=== PATIENT | female | born 1930 | race Caucasian/White ===

== ENCOUNTER 2017-04-04 21:20 | Inpatient (IN) | payer OTHER, BC ==
--- NOTE | 2017-04-04 22:33 | PDOC ---
History of Present Illness <Jacquelyn Sánchez - Last Filed: 04/05/17 02:20> - General History Source: Patient Exam Limitations: No Limitations - History of Present Illness Travel History: No Initial Comments: 04/04/17 22:31 86yo Female patient presents to ED from [facility] via EMS. Patient states she is there for rehab, and had been admit to [facility] from [facility] where she was admitted x 1 week for COPD, CHF, and Anemia. Patient was to follow up with her GI doctor regarding anemia, but today patient went to bathroom and had BM that was all blood. She reports her most recent Hgb level 6.9. Currently taking Coumadin 5 mg daily for artificial heart valve replacement but has not taken it in 2 days per family. Associated abd pain/ discomfort. Denies epistaxis, hematuria, n/v, fever, diff breathing, CP, or any other complaints at this time. <Benjie Garibay - Last Filed: 04/05/17 03:04> - General Chief Complaint: Rectal Bleed Stated Complaint: Rectal Bleed Time Seen by Provider: 04/04/17 21:41 Past History <Jacquelyn Sánchez - Last Filed: 04/05/17 02:20> - Travel Traveled outside of the country in the last 30 days: No Close contact w/someone who was outside of country & ill: No - Past Medical History Cardiac Disorders: Yes CVA: Yes - Surgical History Cardiac Surgery: Yes (aorta valve replacement, pacemaker) Orthopedic Surgery: Yes (Knee and shoulder) - Immunization History Immunization Up to Date: Yes - Psycho/Social/Smoking Cessation Hx Anxiety: No Suicidal Ideation: No Smoking Status: No Smoking History: Never smoked Have you smoked in the past 12 months: No Number of Cigarettes Smoked Daily: 0 Information on smoking cessation initiated: No Hx Alcohol Use: No Drug/Substance Use Hx: No Substance Use Type: None Hx Substance Use Treatment: No <Benjie Garibay - Last Filed: 04/05/17 03:04> - Past Medical History Allergies/Adverse Reactions: Allergies Allergy/AdvReac Type Severity Reaction Status Date / Time No Known Allergies Allergy Verified 04/04/17 22:03 Home Medications: Ambulatory Orders Unobtainable [Unobtainable] 04/04/17 Abd/GI Specific PMHX - Complaint Specific PMHX Colitis: No Diverticulitis: No Gall Bladder Disease: No GERD: No Hepatitis: No Irritable Bowel Synd (IBS): No <Benjie Garibay - Last Filed: 04/05/17 03:04> Review of Systems - Review of Systems Able to Perform ROS?: Yes Is the patient limited Japanese proficient: No Constitutional: No: Chills, Fever Cardiac (ROS): Yes: Lightheadedness. No: Chest Pain, Palpitations, Chest Tightness ABD/GI: Yes: Diarrhea, Rectal Bleeding, Abdominal cramping. No: Blood Streaked Bowels, Constipated, Nausea, Poor Appetite, Poor Fluid Intake, Vomiting, Tarry Stools : No: Burning, Dysuria, Hematuria Musculoskeletal: No: Back Pain Integumentary: No: Bruising, Dryness, Erythema Neurological: Yes: Dizziness. No: Headache, Seizure, Unsteady Gait, Ataxia All Other Systems: Reviewed and Negative <Benjie Garibay - Last Filed: 04/05/17 03:04> *Physical Exam - Vital Signs Last Vital Signs Temp Pulse Resp BP Pulse Ox 96.8 F L 67 19 100/91 98 04/04/17 22:00 04/04/17 22:00 04/04/17 22:00 04/04/17 22:00 04/04/17 22:00 <Jacquelyn Sánchez - Last Filed: 04/05/17 02:20> - Vital Signs Last Vital Signs Temp Pulse Resp BP Pulse Ox 96.8 F L 67 19 100/91 97 04/04/17 22:00 04/04/17 22:00 04/04/17 22:00 04/04/17 22:00 04/04/17 22:00 - Physical Exam General Appearance: Yes: Nourished, Appropriately Dressed. No: Apparent Distress, Mild Distress, Moderate Distress, Severe Distress Neck: positive: Trachea midline, Supple. negative: Normal Thyroid, Rigid, Stridor, Lymphadenopathy (R), Lymphadenopathy (L) Respiratory/Chest: positive: Lungs Clear, Normal Breath Sounds. negative: Chest Tender, Respiratory Distress, Accessory Muscle Use, Labored Respiration, Rapid RR Cardiovascular: positive: Regular Rhythm, Regular Rate Gastrointestinal/Abdominal: positive: Soft, Increased Bowel Sounds, Distended. negative: Normal Bowel Sounds, Tender, Flat, Guarding, Rebound, Tenderness Musculoskeletal: positive: Normal Inspection. negative: CVA Tenderness Extremity: positive: Normal Capillary Refill, Normal Inspection, Normal Range of Motion. negative: Pedal Edema, Swelling, Calf Tenderness, Erythema, Inflammation Integumentary: positive: Normal Color, Dry, Warm. 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 NML intact, Fully Oriented, Alert, Normal Mood/ Affect, Normal Response, Motor Strength 5/5 <Benjie Garibay D - Last Filed: 04/05/17 03:04> ED Treatment Course - LABORATORY CBC & Chemistry Diagram: 04/04/17 23:43 04/04/17 23:43 - ADDITIONAL ORDERS Additional order review: Laboratory Results 04/04/17 04/04/17 04/04/17 23:43 23:43 23:43 INR 3.80 H D PTT (Actin FS) 44.8 H Sodium 144 Potassium 4.3 Chloride 107 Carbon Dioxide 28 Anion Gap 9 BUN 25 H D Creatinine 0.8 Creat Clearance w eGFR > 60 Random Glucose 117 H Calcium 7.6 L Total Bilirubin 0.1 L D AST 12 L D ALT 23 Alkaline Phosphatase 65 D Creatine Kinase 62 Troponin I 0.02 Total Protein 5.0 L D Albumin 2.7 L D Blood Type A POSITIVE Antibody Screen Negative Crossmatch See Detail 04/04/17 23:43 RBC 2.15 L D MCV 89.4 MCHC 29.5 L RDW 23.2 H D MPV 8.0 Neutrophils % 84.8 H Lymphocytes % 6.7 L D Monocytes % 7.7 Eosinophils % 0.4 Basophils % 0.4 - Medications Given in the ED: ED Medications Discontinued Medications Generic Name Dose Route Start Last Admin Trade Name Freq PRN Reason Stop Dose Admin Pantoprazole Sodium 40 mg/ 100 mls @ 200 mls/hr 04/05/17 00:41 04/05/17 01:40 Sodium Chloride IVPB 04/05/17 01:10 200 mls/hr ONCE ONE Administration <Jacquelyn Sánchez - Last Filed: 04/05/17 02:20> - LABORATORY CBC & Chemistry Diagram: 04/04/17 23:43 04/04/17 23:43 - RADIOLOGY Radiology Studies Ordered: Category Date Time Status ABDOMEN & PELVIS CT W/O CONTR [CT] Stat CT Scan 04/04/17 22:27 Ordered <Benjie Garibay - Last Filed: 04/05/17 03:04> Medical Decision Making - Medical Decision Making 04/05/17 02:[address] Surendra Noyola (via answering service) at 2:09 Awaiting call back 04/05/17 02:20 Patient's case discussed with Dr. Noyola at 2:20 <Jacquelyn Sánchez - Last Filed: 04/05/17 02:20> *DC/Admit/Observation/Transfer <Jacquelyn Sánchez - Last Filed: 04/05/17 02:20> - Discharge Dispostion Admit: Yes <Benjie Garibay - Last Filed: 04/05/17 03:04> Diagnosis at time of Disposition: GI (gastrointestinal bleed) Qualifiers: GI bleed type/associated pathology: unspecified gastrointestinal hemorrhage type Qualified Code(s): K92.2 - Gastrointestinal hemorrhage, unspecified Anemia Qualifiers: Anemia type: unspecified type Qualified Code(s): D64.9 - Anemia, unspecified - Discharge Dispostion Condition at time of disposition: Fair
[2017-04-04 23:51] LABS: BASOPHIL 0.4 % (0-2.0); EOSINOPHIL 0.4 % (0-4.5); MCH 26.4 pg (25.7-33.7); MCHC 29.5 g/dl (32.0-36.0); MEAN CELL VOLUME 89.4 fl (80-96); NEUTROPHILS 84.8 % (42.8-82.8); PLATELET COUNT 260 K/MM3 (134-434); RDW 23.2 % (11.6-15.6); WHITE BLOOD COUNT 11.9 K/mm3 (4.0-10.0)
[2017-04-05 00:31] LABS: INR 3.8 (0.82-1.09); PROTHROMBIN TIME (PATIENT) 42.9 SEC (9.98-11.88)
[2017-04-05 00:34] LABS: ACTIVATED PTT 44.8 SECONDS (26.9-34.4)
[2017-04-05] MEDS ORDERED: PANTOPRAZOLE SODIUM 40 MG in SODIUM CHLORIDE 100 ML IVPB ONE (00:41)
--- NOTE | 2017-04-05 00:42 | PDOC ---
*Physical Exam - Vital Signs Last Vital Signs Temp Pulse Resp BP Pulse Ox 96.8 F L 67 19 100/91 98 04/04/17 22:00 04/04/17 22:00 04/04/17 22:00 04/04/17 22:00 04/04/17 22:00 ED Treatment Course - LABORATORY CBC & Chemistry Diagram: 04/05/17 17:45 04/04/17 23:43 - ADDITIONAL ORDERS Additional order review: Laboratory Results 04/04/17 04/04/17 23:43 23:43 INR 3.80 H D PTT (Actin FS) 44.8 H Crossmatch See Detail 04/04/17 23:43 RBC 2.15 L D MCV 89.4 MCHC 29.5 L RDW 23.2 H D MPV 8.0 Neutrophils % 84.8 H Lymphocytes % 6.7 L D Monocytes % 7.7 Eosinophils % 0.4 Basophils % 0.4 Medical Decision Making - Medical Decision Making 04/05/17 00:42 agree with care from BARBARA Garibay *DC/Admit/Observation/Transfer Diagnosis at time of Disposition: GI (gastrointestinal bleed), Anemia - Discharge Dispostion Condition at time of disposition: Fair
[2017-04-05 00:47] LABS: ALBUMIN 2.7 g/dl (3.4-5.0); ANION GAP 9 (8-16); BILIRUBIN,TOTAL 0.1 mg/dL (0.2-1.0); CALCIUM 7.6 mg/dL (8.5-10.1); CO2 28 mmol/L (21-32); COCKROFT - GAULT 55.6835; CREATININE 0.8 mg/dL (0.55-1.02); GLUCOSE,RANDOM 117 mg/dL (74-106); SGOT/AST 12 U/L (15-37); SGPT/ALT 23 U/L (12-78)
[2017-04-05 00:49] LABS: ALK PHOS 65 U/L (45-117); TROPONIN I 0.02 ng/ml (0.00-0.05)
[2017-04-05] MEDS ORDERED: PANTOPRAZOLE SODIUM 100 ML IVPB ONE (00:51)
[2017-04-05 02:41] LABS: ANISOCYTOSIS 3+; MICROCYTOSIS 3+
[2017-04-05 05:30] VITALS: BMI 30.7
--- NOTE | 2017-04-05 05:48 | CONSULT ---
Consult Consult Specialty:: Pulm/CCM - History of Present Illness Chief Complaint: Abd pain with BRBPR History of Present Illness: 86yow with PMHx COPD, CHF, A-fib with pacemaker, mitral valve replacement on coumadin with recent admission to [facility] for CHF exacerbation and anemia and discharged to [facility] for rehab presents to ED via EMS with c/o abd pain and BRBPR. Patient reports planned w/u of anemia with her GI doctor, but today had episode of hematechezia. She reports her most recent Hgb level 6.9. Coumadin 5 mg daily for artificial heart valve replacement was held for 2 days prior as per family. In the ED VSS with no repeat episode of bleed. Labs notable for hgb 5.7, INR 3.8 , trop 0.2. 1U PRBC and Protonix 40mg given in ED. She was transferred to ICU for management In ICU VSS, A+O x3, smear of bloody stool at rectum. Cont 2L NC O2. 2 20G husam IV placed, started on protonix drip. 2nd U of PRBC started. 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 No: Diabetes Mellitus - Past Surgical History Past Surgical History: Yes: Permanent Pacemaker, Valve Replacement - Alcohol/Substance Use Hx Alcohol Use: No - Smoking History Smoking history: Never smoked Have you smoked in the past 12 months: No Aproximately how many cigarettes per day: 0 - Social History Usual Living Arrangement: With Spouse History of Recent Travel: No Home Medications - Allergies Allergies/Adverse Reactions: Allergies Allergy/AdvReac Type Severity Reaction Status Date / Time No Known Allergies Allergy Verified 04/04/17 22:03 - Home Medications Home Medications: Ambulatory Orders Amiodarone HCl 200 mg PO DAILY 04/05/17 Aspirin [ASA -] 81 mg PO DAILY 04/05/17 Atorvastatin Ca [Lipitor] 40 mg PO HS 04/05/17 Benzonatate 200 mg PO DAILY 04/05/17 Bumetanide [Bumex -] 1 mg PO DAILY 04/05/17 Docusate Sodium [Colace -] 100 mg PO DAILY 04/05/17 Fluticasone Furoate [Arnuity Ellipta] 200 mcg IH DAILY 04/05/17 Levofloxacin 250 mg Ivpb [Levaquin 250 mg Premixed Ivpb -] 250 mg PO DAILY 04/05 Levothyroxine [Synthroid -] 50 mcg PO DAILY 04/05/17 Pantoprazole Sodium [Protonix] 40 mg PO DAILY 04/05/17 Polyethylene Glycol 3350 [Gavilax] 1 pack PO DAILY 04/05/17 Potassium Citrate [Urocit-K (Nf)] 540 mg NR BID 04/05/17 Sennosides [Senna] 2 tab PO DAILY 04/05/17 Tiotropium [place] [Spiriva] 1 inh PO DAILY 04/05/17 Warfarin Sodium [Coumadin] 5 mg PO DAILY 04/05/17 Family Disease History - Family Disease History Family History: Unremarkable Review of Systems - Review of Systems Constitutional: reports: No Symptoms Eyes: reports: No Symptoms HENT: reports: No Symptoms Neck: reports: No Symptoms Cardiovascular: reports: No Symptoms Respiratory: reports: No Symptoms Gastrointestinal: reports: Abdominal Pain, Melena Genitourinary: reports: No Symptoms Breasts: reports: No Symptoms Reported Neurological: reports: Other (lightheadedness) Endocrine: reports: No Symptoms Hematology/Lymphatic: reports: Easily Bruised Psychiatric: reports: No Symptoms Physical Exam Vital Signs: Vital Signs Temperature 98.7 F 04/05/17 05:17 Pulse Rate 71 04/05/17 05:17 Respiratory Rate 18 04/05/17 05:17 Blood Pressure 137/67 04/05/17 05:17 O2 Sat by Pulse Oximetry (%) 98 04/04/17 22:00 Constitutional: Yes: Well Nourished, No Distress, Calm Eyes: Yes: PERRL HENT: Yes: Normocephalic Neck: Yes: Trachea Midline Cardiovascular: Yes: Other (Paced rhythm) Respiratory: Yes: CTA Bilaterally, On Nasal O2 Gastrointestinal: Yes: Soft (ND, NT; + BS) Renal/: Yes: Incontinence Musculoskeletal: Yes: Joint Stiffness (knee surgeries) Extremities: Yes: Other (WWP) Edema: No Peripheral Pulses WNL: Yes Integumentary: Yes: WNL Neurological: Yes: Alert, Oriented ...Motor Strength: WNL Psychiatric: Yes: Alert, Oriented Labs: CBCD WBC 11.9 K/mm3 (4.0-10.0) H 04/04/17 23:43 RBC 2.15 M/mm3 (3.60-5.2) L D 04/04/17 23:43 Hgb 5.7 GM/dL (10.7-15.3) L* D 04/04/17 23:43 Hct 19.3 % (32.4-45.2) L D 04/04/17 23:43 MCV 89.4 fl (80-96) 04/04/17 23:43 MCHC 29.5 g/dl (32.0-36.0) L 04/04/17 23:43 RDW 23.2 % (11.6-15.6) H D 04/04/17 23:43 Plt Count 260 K/MM3 (134-434) D 04/04/17 23:43 MPV 8.0 fl (7.5-11.1) 04/04/17 23:43 CMP Sodium 144 mmol/L (136-145) 04/04/17 23:43 Potassium 4.3 mmol/L (3.5-5.1) 04/04/17 23:43 Chloride 107 mmol/L (98-107) 04/04/17 23:43 Carbon Dioxide 28 mmol/L (21-32) 04/04/17 23:43 Anion Gap 9 (8-16) 04/04/17 23:43 BUN 25 mg/dL (7-18) H D 04/04/17 23:43 Creatinine 0.8 mg/dL (0.55-1.02) 04/04/17 23:43 Creat Clearance w eGFR > 60 (>60) 04/04/17 23:43 Calcium 7.6 mg/dL (8.5-10.1) L 04/04/17 23:43 Total Bilirubin 0.1 mg/dL (0.2-1.0) L D 04/04/17 23:43 AST 12 U/L (15-37) L D 04/04/17 23:43 ALT 23 U/L (12-78) 04/04/17 23:43 Alkaline Phosphatase 65 U/L (45-117) D 04/04/17 23:43 Total Protein 5.0 g/dl (6.4-8.2) L D 04/04/17 23:43 Albumin 2.7 g/dl (3.4-5.0) L D 04/04/17 23:43 Ambulatory Orders Amiodarone HCl 200 mg PO DAILY 04/05/17 Aspirin [ASA -] 81 mg PO DAILY 04/05/17 Atorvastatin Ca [Lipitor] 40 mg PO HS 04/05/17 Benzonatate 200 mg PO DAILY 04/05/17 Bumetanide [Bumex -] 1 mg PO DAILY 04/05/17 Docusate Sodium [Colace -] 100 mg PO DAILY 04/05/17 Fluticasone Furoate [Arnuity Ellipta] 200 mcg IH DAILY 04/05/17 Levofloxacin 250 mg Ivpb [Levaquin 250 mg Premixed Ivpb -] 250 mg PO DAILY 04/05 Levothyroxine [Synthroid -] 50 mcg PO DAILY 04/05/17 Pantoprazole Sodium [Protonix] 40 mg PO DAILY 04/05/17 Polyethylene Glycol 3350 [Gavilax] 1 pack PO DAILY 04/05/17 Potassium Citrate [Urocit-K (Nf)] 540 mg NR BID 04/05/17 Sennosides [Senna] 2 tab PO DAILY 04/05/17 Tiotropium [place] [Spiriva] 1 inh PO DAILY 04/05/17 Warfarin Sodium [Coumadin] 5 mg PO DAILY 04/05/17 Active Medications Generic Name Dose Route Start Last Admin Trade Name Freq PRN Reason Stop Dose Admin Pantoprazole Sodium 80 mg/ 100 mls @ 10 mls/hr 04/05/17 06:00 Sodium Chloride IVPB Q10H GISELA 8 MG/HR Imaging - Results Cat Scan: Pending (CT A/P results pending) Problem List - Problems (1) Anemia Code(s): D64.9 - ANEMIA, UNSPECIFIED Qualifiers: Anemia type: unspecified type Qualified Code(s): D64.9 - Anemia, unspecified (2) GI (gastrointestinal bleed) Code(s): K92.2 - GASTROINTESTINAL HEMORRHAGE, UNSPECIFIED Qualifiers: GI bleed type/associated pathology: unspecified gastrointestinal hemorrhage type Qualified Code(s): K92.2 - Gastrointestinal hemorrhage, unspecified (3) Anticoagulation adequate with anticoagulant therapy Code(s): Z79.01 - JAIL (CURRENT) USE OF ANTICOAGULANTS Assessment/Plan 86yow with PMHx COPD, CHF, A-fib with pacemaker, mitral valve replacement on coumadin with recent admission to [facility] for CHF exacerbation and anemia and discharged to [facility] for rehab presents to ED via EMS with c/o epigastric abd pain and BRBPR. Transferred to ICU with severe anemia 2/2 GIB. Presently HD stable Plan: -GI consult for possible EGD -Maintain NPO -Maintain large bore IV access -Protonix drip at 8mg/hr -Monitor CBC and coags -PRBC transfusion for Hgb<7 -Gentle transfusions re CHF -NC O2 as needed for O2 sat >95% -Consider diuresis with transfusions -Cardiology consult
[2017-04-05] MEDS: PANTOPRAZOLE SODIUM 80 MG in SODIUM CHLORIDE 100 ML IVPB SCH ×2 (06:20→16:16)
[2017-04-05] MEDS ORDERED: ACETAMINOPHEN 325 MG TABLET (FP) PO PRN (08:08)
--- NOTE | 2017-04-05 08:15 | PN ---
Physical Exam: SUBJECTIVE: Patient seen and examined at bedside this AM in ICU with sons present. AAO and at mental status baseline. States she feels much better & more like herself. Receiving 2nd unit PRBC during our conversation & without any issues during transfusion. OBJECTIVE: Vital Signs Period Temp Pulse Resp BP Sys/Chan Pulse Ox Last 24 Hr 98.7 F 71 18 137/67 98 GENERAL: The patient is awake, alert, and fully oriented, in no acute distress. HEENT: Atyraumatic, EOMI, PERRLA, Mild conjunctival pallor noted, no lymphadenopathy LUNGS: Breath sounds equal, clear to auscultation bilaterally, no wheezes, no crackles, no accessory muscle use. HEART: Regular rate and rhythm, S1, S2 with 4/6 systolic murmur at right sternal border ABDOMEN: Soft, nontender, nondistended, normoactive bowel sounds, no guarding, no rebound EXTREMITIES: 2+ pulses, warm, well-perfused, trace bilateral LE edema NEUROLOGICAL: Cranial nerves II through XII grossly intact. Normal speech, gait not observed. PSYCH: Normal mood, normal affect. SKIN: Warm, dry, normal turgor, no rashes or lesions noted. Active Medications Generic Name Dose Route Start Last Admin Trade Name Freq PRN Reason Stop Dose Admin Acetaminophen 650 mg 04/05/17 08:08 Tylenol - PO Q6H PRN FEVER OR PAIN Chlorhexidine Gluconate 1 applic 04/05/17 22:00 Hibiclens For Decolonization - TP HS GISELA Pantoprazole Sodium 80 mg/ 100 mls @ 10 mls/hr 04/05/17 06:00 04/05/17 06:20 Sodium Chloride IVPB 10 mls/hr Q10H GISELA Administration 8 MG/HR Ceftriaxone Sodium 50 mls @ 100 mls/hr 04/05/17 10:00 04/05/17 12:06 Rocephin 1gm Ivpb (Pre-Docked) IVPB 100 mls/hr DAILY GISELA Administration Mupirocin 1 applic 04/05/17 10:00 04/05/17 12:06 Bactroban Ointment (For Decolonization) - NS 04/10/17 09:59 1 units BID GISELA Administration ASSESSMENT/PLAN: Patient is a 86 year old female with PMH of CHF, Paroxysmal A-Fib with pacemaker , 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 Patient recently resumed Coumadin #Acute GI bleed, Hematochezia -2 units PRBC given with improvement to 7.6 this afternoon -will trend CBC later this afternoon & in AM -NPO for now -PPI drip -transfuse as needed to keep Hgb >7 -GI consult appreciated (patient & family are unsure if they want endoscopy/ colonoscopy, awaiting ECHO results & further trending of hemoglobin before they make decision) -may need transfer to tertiary care center if intervention is needed #Acute UTI -Started on ceftriaxone -awaiting urine culture #A-Fib/Aortic valve replacement Hx in setting of Coumadin use -Coumadin on hold (supratherapeutic INR) -awaiting ECHO results -Cardiology consulted -holding following home meds: -follow INR #HTN/HLD/CAD Hx -continue home meds: Lipitor 40mg HS, Amiodarone 200mg QD #Right renal Hyperdensity noted on CT -will need f/u CT w/ contrast to rule out mass -can be monitored as outpatient Prophylaxis -SCD's -PPI drip -IVF as needed -monitor electrolytes -NPO Visit type - Emergency Visit Emergency Visit: Yes ED Registration Date: 04/05/17 Care time: The patient presented to the Emergency Department on the above date and was hospitalized for further evaluation of their emergent condition. - New Patient This patient is new to me today: Yes Date on this admission: 04/05/17 - Critical Care Critical Care patient: Yes Total Critical Care Time (in minutes): 50 Critical Care Statement: The care of this patient involved high complexity decision making to prevent further life threatening deterioration of the patient 's condition and/or to evalute & treat vital organ system(s) failure or risk of failure.
[2017-04-05 08:47] LABS: URINE APPEARANCE CLEAR; URINE BILIRUBIN NEGATIVE (NEGATIVE); URINE BLOOD NEGATIVE (NEGATIVE); URINE COLOR YELLOW; URINE GLUCOSE (UA) NEGATIVE (NEGATIVE); URINE KETONE NEGATIVE (NEGATIVE); URINE NITRITE NEGATIVE (NEGATIVE); URINE PROTEIN NEGATIVE (NEGATIVE); URINE UROBILINOGEN NEGATIVE E.U./dl (0.2-1.0)
[2017-04-05 08:53] LABS: URINE LEUK ESTERASE 2+ (NEGATIVE)
[2017-04-05 09:07] LABS: URINE HYALINE CAST 4 /lpf; URINE MUCUS RARE; URINE RBC 2 /hpf (0-3); URINE WBC 55 /hpf (3-5)
--- NOTE | 2017-04-05 10:22 | HP ---
Admitting History and Physical - Primary Care Physician PCP: Rl Wagner - Admission Chief Complaint: anemia.GI bleed History of Present Illness: ER HISTORY History of Present Illness Travel History: No Initial Comments: 04/04/17 22:31 86yo Female patient presents to ED from [facility] via EMS. Patient states she is there for rehab, and had been admit to [facility] from [facility] where she was admitted x 1 week for COPD, CHF, and Anemia. Patient was to follow up with her GI doctor regarding anemia, but today patient went to bathroom and had BM that was all blood. She reports her most recent Hgb level 6.9. Currently taking Coumadin 5 mg daily for artificial heart valve replacement but has not taken it in 2 days per family. Associated abd pain/ discomfort. Denies epistaxis, hematuria, n/v, fever, diff breathing, CP, or any other complaints at this time. Pt examined by me in the ICU-- Pt admitted in ICU for GI bleeding. She was in [facility] recently for bronchitis, severe orthopnea and PND- CHF decompensation. 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 She was dc on 03/26 to [facility]. She was dc on PO Levaquin and Coumadin. Admission Hb in [place] - 7.9. In [place] she saw dark stools for the last two days and yesterday noted red blood in stool. Hb on 04/04-- 6.9 in [place]. She felt lightheaded , upper abd pain , decreased SOB, feels tired. No active bleeding here so far. received 2 units PRBC History Source: Patient Limitations to Obtaining History: No Limitations - Past Medical History DELIVERY ARCHITECT: Yes: Other (h/o subarachnoid hemorrhage) Cardiovascular: Yes: AFIB, CHF, Hyperlipdemia, Other (bioprosthetic valve) Pulmonary: Yes: Other (none) Gastrointestinal: Yes: Other (none) Hepatobiliary: Yes: Cirrhosis, Cholelithiasis, Cholecystitis, Choledocholithiasis, Hepatitis A, Hepatitis B, Hepatitis C, Other Renal/: Yes: Renal Calculi ...: No Heme/Onc: Yes: Other (Kidney tumor). No: Anemia, B12 Deficiency, Bleeding Disorder, Cancer, Current Chemotherapy, Current Radiation Therapy, Hemochromatosis, Hypercoaguable State, Myeloproliferative Synd, Sickle Cell Disease, Sickle Cell Trait, Thrombocytopenia Musculoskeletal: Yes: Other (back pain) Endocrine: Yes: Hypothyroidism. No: Diabetes Mellitus - Past Surgical History Past Surgical History: Yes: Permanent Pacemaker, Valve Replacement - Advance Directives Advance Directives: Yes: Health Care Proxy - Smoking History Smoking history: Never smoked Have you smoked in the past 12 months: No Aproximately how many cigarettes per day: 0 - Alcohol/Substance Use Hx Alcohol Use: No - Social History History of Recent Travel: No Home Medications - Allergies Allergies/Adverse Reactions: Allergies Allergy/AdvReac Type Severity Reaction Status Date / Time No Known Allergies Allergy Verified 04/04/17 22:03 - Home Medications Home Medications: Ambulatory Orders Amiodarone HCl 200 mg PO DAILY 04/05/17 Aspirin [ASA -] 81 mg PO DAILY 04/05/17 Atorvastatin Ca [Lipitor] 40 mg PO HS 04/05/17 Benzonatate 200 mg PO DAILY 04/05/17 Bumetanide [Bumex -] 1 mg PO DAILY 04/05/17 Docusate Sodium [Colace -] 100 mg PO DAILY 04/05/17 Fluticasone Furoate [Arnuity Ellipta] 200 mcg IH DAILY 04/05/17 Levofloxacin 250 mg Ivpb [Levaquin 250 mg Premixed Ivpb -] 250 mg PO DAILY 04/05 Levothyroxine [Synthroid -] 50 mcg PO DAILY 04/05/17 Pantoprazole Sodium [Protonix] 40 mg PO DAILY 04/05/17 Polyethylene Glycol 3350 [Gavilax] 1 pack PO DAILY 04/05/17 Potassium Citrate [Urocit-K (Nf)] 540 mg NR BID 04/05/17 Sennosides [Senna] 2 tab PO DAILY 04/05/17 Tiotropium [place] [Spiriva] 1 inh PO DAILY 04/05/17 Warfarin Sodium [Coumadin] 5 mg PO DAILY 04/05/17 Review of Systems - Review of Systems Constitutional: reports: Weakness. denies: Chills, Fever Cardiovascular: denies: Chest Pain, Palpitations, Shortness of Breath Respiratory: denies: Cough Gastrointestinal: reports: Abdominal Pain. denies: Constipation, Diarrhea, Nausea, Vomiting Physical Examination Vital Signs: Vital Signs Temperature 98.8 F 04/05/17 10:00 Pulse Rate 74 04/05/17 10:00 Respiratory Rate 17 04/05/17 10:00 Blood Pressure 102/45 04/05/17 10:00 O2 Sat by Pulse Oximetry (%) 98 04/05/17 05:41 Constitutional: Yes: No Distress, Calm Cardiovascular: Yes: Regular Rate and Rhythm, Murmur Respiratory: Yes: Diminished. No: Rales, Rhonchi Gastrointestinal: Yes: Normal Bowel Sounds, Soft, Abdomen, Obese. No: Distention, Tenderness Edema: No Psychiatric: Yes: Alert, Oriented Labs: Laboratory Results - last 24 hr 04/04/17 04/04/17 04/04/17 23:43 23:43 23:43 WBC RBC Hgb Hct MCV MCHC RDW Plt Count MPV Neutrophils % Lymphocytes % Monocytes % Eosinophils % Basophils % Anisocytosis Microcytosis INR 3.80 H D PTT (Actin FS) 44.8 H Sodium 144 Potassium 4.3 Chloride 107 Carbon Dioxide 28 Anion Gap 9 BUN 25 H D Creatinine 0.8 Creat Clearance w eGFR > 60 Random Glucose 117 H Calcium 7.6 L Total Bilirubin 0.1 L D AST 12 L D ALT 23 Alkaline Phosphatase 65 D Creatine Kinase 62 Troponin I 0.02 Total Protein 5.0 L D Albumin 2.7 L D Urine Color Urine Appearance Urine pH Urine Protein Urine Glucose (UA) Urine Ketones Urine Blood Urine Nitrite Urine Bilirubin Urine Urobilinogen Ur Leukocyte Esterase Urine RBC Urine WBC Ur Epithelial Cells Hyaline Casts Urine Mucus Blood Type A POSITIVE Antibody Screen Negative Crossmatch See Detail 04/04/17 04/05/17 23:43 06:00 WBC 11.9 H RBC 2.15 L D Hgb 5.7 L* D Hct 19.3 L D MCV 89.4 MCHC 29.5 L RDW 23.2 H D Plt Count 260 D MPV 8.0 Neutrophils % 84.8 H Lymphocytes % 6.7 L D Monocytes % 7.7 Eosinophils % 0.4 Basophils % 0.4 Anisocytosis 3+ Microcytosis 3+ INR PTT (Actin FS) Sodium Potassium Chloride Carbon Dioxide Anion Gap BUN Creatinine Creat Clearance w eGFR Random Glucose Calcium Total Bilirubin AST ALT Alkaline Phosphatase Creatine Kinase Troponin I Total Protein Albumin Urine Color Yellow Urine Appearance Clear Urine pH 5.0 D Urine Protein Negative Urine Glucose (UA) Negative Urine Ketones Negative Urine Blood Negative Urine Nitrite Negative Urine Bilirubin Negative Urine Urobilinogen Negative Ur Leukocyte Esterase 2+ H Urine RBC 2 Urine WBC 55 Ur Epithelial Cells Rare Hyaline Casts 4 Urine Mucus Rare Blood Type Antibody Screen Crossmatch Imaging - Results Cat Scan: Report Reviewed (left lobe consolidation- rt renal mass?) EKG: Image Reviewed (atrial pacing) Problem List - Problems (1) Anemia Code(s): D64.9 - ANEMIA, UNSPECIFIED Qualifiers: Anemia type: unspecified type Qualified Code(s): D64.9 - Anemia, unspecified (2) GI (gastrointestinal bleed) Code(s): K92.2 - GASTROINTESTINAL HEMORRHAGE, UNSPECIFIED Qualifiers: GI bleed type/associated pathology: unspecified gastrointestinal hemorrhage type Qualified Code(s): K92.2 - Gastrointestinal hemorrhage, unspecified (3) Thrombosis of prosthetic heart valve Code(s): T82.867A - THROMBOSIS DUE TO CARDIAC PROSTH DEV/GRFT, INITIAL ENCOUNTER (4) COPD (chronic obstructive pulmonary disease) Code(s): J44.9 - CHRONIC OBSTRUCTIVE PULMONARY DISEASE, UNSPECIFIED Assessment/Plan PLAN s/p 2 units PRBC NPO Coumadin on hold GI and Cardiology eval not in acute CHF decompensation repeat CBC may need to do contrast enhanced CT abd- for renal mass SCD for DVT prophylaxis Pt is on Protonix iv for GI bleed No current actire bleeding now ICU monitoring spoke with nurse and resident Time spent 30 min
[2017-04-05 11:39] LABS: MCH 28.4 pg (25.7-33.7); MCHC 32.6 g/dl (32.0-36.0); MEAN CELL VOLUME 87.3 fl (80-96); MEAN PLT VOLUME 6.9 fl (7.5-11.1); PLATELET COUNT 286 K/MM3 (134-434); RDW 17.6 % (11.6-15.6); WHITE BLOOD COUNT 10.3 K/mm3 (4.0-10.0)
[2017-04-05] MEDS: CEFTRIAXONE 50 ML IVPB SCH (12:06)
[2017-04-05] MEDS: MUPIROCIN 2% TOPICAL OINTMENT FOR DECOLONIZATION NS SCH ×2 (12:06→21:46)
--- NOTE | 2017-04-05 12:44 | CON.CARD ---
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 Case d/w Dr. Bala Reeves at [facility], transvalvular gradient at [facility] higher than current echo finding. - History Source History Provided By: Patient Limitations to Obtaining History: No Limitations - Past Medical History DIRECTOR OF FINANCE: Yes: Other (h/o subarachnoid hemorrhage) Cardio/Vascular: Yes: AFIB, CHF, Hyperlipdemia, Other (bioprosthetic valve) Pulmonary: Yes: Other (none) Gastrointestinal: Yes: Other (none) Hepatobiliary: Yes: Cirrhosis, Cholelithiasis, Cholecystitis, Choledocholithiasis, Hepatitis A, Hepatitis B, Hepatitis C, Other Renal/: Yes: Renal Calculi ...: No Musculoskeletal: Yes: Other (back pain) Endocrine: Yes: Hypothyroidism. No: Diabetes Mellitus - Past Surgical History Past Surgical History: Yes: Permanent Pacemaker, Valve Replacement - Alcohol/Substance Use Hx Alcohol Use: No - Smoking History Smoking history: Never smoked Have you smoked in the past 12 months: No Aproximately how many cigarettes per day: 0 - Social History Usual Living Arrangement: With Spouse History of Recent Travel: No Home Medications - Allergies Allergies/Adverse Reactions: Allergies Allergy/AdvReac Type Severity Reaction Status Date / Time No Known Allergies Allergy Verified 04/04/17 22:03 - Home Medications Home Medications: Ambulatory Orders Amiodarone HCl 200 mg PO DAILY 04/05/17 Aspirin [ASA -] 81 mg PO DAILY 04/05/17 Atorvastatin Ca [Lipitor] 40 mg PO HS 04/05/17 Benzonatate 200 mg PO DAILY 04/05/17 Bumetanide [Bumex -] 1 mg PO DAILY 04/05/17 Docusate Sodium [Colace -] 100 mg PO DAILY 04/05/17 Fluticasone Furoate [Arnuity Ellipta] 200 mcg IH DAILY 04/05/17 Levofloxacin 250 mg Ivpb [Levaquin 250 mg Premixed Ivpb -] 250 mg PO DAILY 04/05 Levothyroxine [Synthroid -] 50 mcg PO DAILY 04/05/17 Pantoprazole Sodium [Protonix] 40 mg PO DAILY 04/05/17 Polyethylene Glycol 3350 [Gavilax] 1 pack PO DAILY 04/05/17 Potassium Citrate [Urocit-K (Nf)] 540 mg NR BID 04/05/17 Sennosides [Senna] 2 tab PO DAILY 04/05/17 Tiotropium [place] [Spiriva] 1 inh PO DAILY 04/05/17 Warfarin Sodium [Coumadin] 5 mg PO DAILY 04/05/17 Review of Systems - Review of Systems Constitutional: reports: Weakness Gastrointestinal: reports: Rectal Bleeding Vital Signs: Vital Signs Temperature 98.8 F 04/05/17 10:00 Pulse Rate 76 04/05/17 12:00 Respiratory Rate 17 04/05/17 12:00 Blood Pressure 102/45 04/05/17 12:00 O2 Sat by Pulse Oximetry (%) 98 04/05/17 09:00 Constitutional: Yes: No Distress, Calm, Thin Neck: Yes: Supple Respiratory: Yes: Regular, Diminished Gastrointestinal: Yes: Soft, Hypoactive Bowel Sounds Cardiovascular: Yes: Regular Rate and Rhythm JVD: No Carotid Bruit: No Heart Sounds: Yes: S1, S2 Murmur: Yes: Systolic Murmur, Grade 2 Edema: No - Other Data Labs, Other Data: CBC, BMP 04/05/17 11:34 INR, PTT INR 3.80 (0.82-1.09) H D 04/04/17 23:43 Imaging - Results Cat Scan: Report Reviewed (LLL consolidation/ATX, small effusion, right renal mass - cyst vs solid lesion) Problem List - Problems (1) Anemia Code(s): D64.9 - ANEMIA, UNSPECIFIED Qualifiers: Anemia type: unspecified type Qualified Code(s): D64.9 - Anemia, unspecified (2) GI (gastrointestinal bleed) Code(s): K92.2 - GASTROINTESTINAL HEMORRHAGE, UNSPECIFIED Qualifiers: GI bleed type/associated pathology: unspecified gastrointestinal hemorrhage type Qualified Code(s): K92.2 - Gastrointestinal hemorrhage, unspecified (3) Anticoagulation adequate with anticoagulant therapy Code(s): Z79.01 - PATHOLOGIST (CURRENT) USE OF ANTICOAGULANTS (4) Pacemaker Code(s): Z95.0 - PRESENCE OF CARDIAC PACEMAKER (5) Paroxysmal atrial fibrillation Code(s): I48.0 - PAROXYSMAL ATRIAL FIBRILLATION (6) Hyperlipidemia Code(s): E78.5 - HYPERLIPIDEMIA, UNSPECIFIED Qualifiers: Hyperlipidemia type: pure hypercholesterolemia Qualified Code(s): E78.00 - Pure hypercholesterolemia, unspecified; E78.0 - Pure hypercholesterolemia (7) History of aortic valve replacement with bioprosthetic valve Code(s): Z95.3 - PRESENCE OF XENOGENIC HEART VALVE Assessment/Plan 04/05/2017 TTE: Normal biventricular size and fxn, mod LAE, mod TR RVSP 40-50 mmHg , mild MR, AR, NV, bioAVR with mod calcification and 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 Hematochezia, symptomatic anemia in context of supratherapeutic INR (with levaquin) and ASA 2. 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 HTN/HCVD 5. Hyperlipidemia 6. Right renal mass cyst vs solid mass 7. Hypothyroidism 8. Diastolic dysfunction with h/o failure P:1. Monitor Hgb post transfusion and transfuse further as needed 2. Coumadin and ASA on hold, maintain on Protonix gtt, hold Bumex, trend INR 3. Continue Lipitor 40 qhs, amio 200 qd 4. GI input noted, recommend EGD/colonoscopy, may proceed from CV standpoint given absence of symptoms of acute coronary syndrome, decompensated CHF or malignant arrhythmia 5. Previously offered MARVA at [facility] to better define bioAVR anatomy, patient declined and sons indicate would likely decline here as well 6. Thank you for consultative opportunity, plan for f/u with Dr. Bala Reeves at [facility] upon d/c
--- NOTE | 2017-04-05 13:15 | CON.GI ---
Consult Consult Specialty:: GI Referred by:: Amber Huerta Reason for Consultation:: GI bleed - History of Present Illness Chief Complaint: Rectal bleeding History of Present Illness: Two sons present at bedside aiding in giving history. 86F admitted from [facility] where she was undergoing rehab for evaluation of rectal bleeding, which started last night. She described some upper abdominal discomfort with associated dark bowel movements but also with a large amount of red rectal bleeding as well. In the ER triage vitals revealed her to be afebrile with pulse of 67 and blood pressure of 100/91. She was given 2 units of PRBC since admission. There was no active bleeding noted from the morning. She alluded to having her most recent hospitalizations at [facility]. She was just discharged there about a week ago and was rehabbing. She had been diagnosed with a thrombus on her biopprosthetic valve and was heparinized, started on coumadin and is maintained on ASA 81mg once daily. Prior to this her sons tell me that she was anemic and had received PRBC's there. There was no GI work-up performed. She was also treated for bronchitis and was placed on Levaquin. She was supposed to see Dr. Bear, pyroglazer affiliated with [facility] as an outpatient. She alludes to following with Dr. Galeana, pyroglazer at [facility] and does recall undergoing colonoscopies in the past. She recalls being told of diverticulosis. She recalls having an attempted EGD in the past as well however the scope could not be passed "because she kept choking". She currently denies any focal GI complaints. the family is requesting that the patient be transferred to [facility]. 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 No: Diabetes Mellitus - Past Surgical History Past Surgical History: Yes: Hysterectomy, Permanent Pacemaker, Valve Replacement Additional Surgical History: resection of right arm tumor, B/L TKR - Alcohol/Substance Use Hx Alcohol Use: No - Smoking History Smoking history: Never smoked Have you smoked in the past 12 months: No Aproximately how many cigarettes per day: 0 - Social History Usual Living Arrangement: With Spouse ADL: Independent Occupation: Retired [place] of : [facility] History of Recent Travel: No Home Medications - Allergies Allergies/Adverse Reactions: Allergies Allergy/AdvReac Type Severity Reaction Status Date / Time No Known Allergies Allergy Verified 04/04/17 22:03 - Home Medications Home Medications: Ambulatory Orders Amiodarone HCl 200 mg PO DAILY 04/05/17 Aspirin [ASA -] 81 mg PO DAILY 04/05/17 Atorvastatin Ca [Lipitor] 40 mg PO HS 04/05/17 Benzonatate 200 mg PO DAILY 04/05/17 Bumetanide [Bumex -] 1 mg PO DAILY 04/05/17 Docusate Sodium [Colace -] 100 mg PO DAILY 04/05/17 Fluticasone Furoate [Arnuity Ellipta] 200 mcg IH DAILY 04/05/17 Levofloxacin 250 mg Ivpb [Levaquin 250 mg Premixed Ivpb -] 250 mg PO DAILY 04/05 Levothyroxine [Synthroid -] 50 mcg PO DAILY 04/05/17 Pantoprazole Sodium [Protonix] 40 mg PO DAILY 04/05/17 Polyethylene Glycol 3350 [Gavilax] 1 pack PO DAILY 04/05/17 Potassium Citrate [Urocit-K (Nf)] 540 mg NR BID 04/05/17 Sennosides [Senna] 2 tab PO DAILY 04/05/17 Tiotropium [place] [Spiriva] 1 inh PO DAILY 04/05/17 Warfarin Sodium [Coumadin] 5 mg PO DAILY 04/05/17 Family Disease History - Family Disease History Family Disease History: Other: Father ( 68: ? PE), Mother ( 32 during childbirth), Brother (1 : 70 intraabdominal cancer), Sister (1 : 76) Other Family History: 5 sons, 1 daughter: healthy Review of Systems - Review of Systems Constitutional: denies: Chills Cardiovascular: denies: Chest Pain Respiratory: reports: SOB (baseline) Gastrointestinal: reports: Abdominal Pain (resolved), Melena, Rectal Bleeding. denies: Constipation, Diarrhea, Vomiting, Vomiting Blood Musculoskeletal: reports: Joint Pain Physical Exam-GI Vital Signs: Vital Signs Temperature 98.8 F 04/05/17 10:00 Pulse Rate 76 04/05/17 12:00 Respiratory Rate 17 04/05/17 12:00 Blood Pressure 102/45 04/05/17 12:00 O2 Sat by Pulse Oximetry (%) 98 04/05/17 09:00 Constitutional: Yes: Calm Eyes: No: Sclera Icterus Cardiovascular: Yes: Regular Rate and Rhythm, Murmur (+2/6 holosystolic murmur) Respiratory: Yes: CTA Bilaterally Gastrointestinal Inspection: Yes: Scars (pelvic). No: Distention ...Auscultate: Yes: Normoactive Bowel Sounds ...Palpate: No: Hepatomegaly, Splenomegaly, Tenderness ...Rectal Exam: Yes: Other (scant dark red blood in rectal vault. No masses) Neurological: Yes: Alert, Oriented Labs: CBC, BMP 04/05/17 11:34 INR, PTT INR 3.80 (0.82-1.09) H D 04/04/17 23:43 Hepatic Panel Total Bilirubin 0.1 mg/dL (0.2-1.0) L D 04/04/17 23:43 AST 12 U/L (15-37) L D 04/04/17 23:43 ALT 23 U/L (12-78) 04/04/17 23:43 Alkaline Phosphatase 65 U/L (45-117) D 04/04/17 23:43 Albumin 2.7 g/dl (3.4-5.0) L D 04/04/17 23:43 Assessment/Plan GI Bleed: Differential includes both upper and lower GI sources given description of her bleeding (black initially / dark red) precipitated by ASA and supratherapeutic INR. She is currently hemodynamically stable and will need to be closely monitored. The family is currently requesting a transfer to [facility] given that most of Ms. Ann's medical care has been given there. Regardless of if she stays at [facility] or goes to [place], if the patient is willing, GI evaluation will be needed to identify a bleeding source, especially if she will need to be maintained on anticoagulation. Work-up would need to include evaluation of the upper GI tract. It is unclear why upper endoscopy could not be performed previously (? if related to the radiation therapy she received to her neck as part of the treatment of her paraganglioma) however it would at least need to be attempted along with colonoscopy. For now i recommend: ICU monitoring Continued transfusion to maintain hgb around 8 with caution to cardiopulmonary status Evaluation and optimization by cardiology Agree with protonix infusion reversal of coagulopathy. coumadin is held. If active bleeding persists, this will need to be reversed more aggressively per cardiology
--- NOTE | 2017-04-05 14:31 | PN ---
Progress Note (short form) - Note Progress Note: Had discussion with Ms. Ann regarding potential need for EGD/COlonoscopy, especially in the setting of need for continued anticoagulation. We discussed potential risks like but not limited to bleeding, perforation requiring surgery to repair, infection and sedation medication effects all of which could be potentially life threatening. She has agreed to the procedures if they were felt to be clinically necessary. I also had a discission with Dr. Cobos, cariologist. He is awaiting Echo results. We discussed that if she is felt to be high risk, consideration should be given to transfer her to a tertiary care center such as [facility].
--- NOTE | 2017-04-05 16:27 | EKG ---
Test Reason : Blood Pressure : / mmHG Vent. Rate : 070 BPM Atrial Rate : 070 BPM P-R Int : 000 ms QRS Dur : 126 ms QT Int : 498 ms P-R-T Axes : 000 -24 112 degrees QTc Int : 537 ms POOR DATA QUALITY, INTERPRETATION MAY BE ADVERSELY AFFECTED Atrial-paced rhythm with prolonged AV conduction LEFT VENTRICULAR HYPERTROPHY WITH QRS WIDENING AND REPOLARIZATION ABNORMALITY ABNORMAL ECG WHEN COMPARED WITH ECG OF 21-SEP-2014 11:54, MINIMAL CRITERIA FOR SEPTAL INFARCT ARE NO LONGER PRESENT Confirmed by NASH OCONNELL MD ([id number]) on 04/05/2017 4:27:42 PM Referred By: Confirmed By:NASH OCONNELL MD
[2017-04-05] MEDS: AMIODARONE HCL 200 MG TABLET (FP) PO SCH (17:02)
[2017-04-05 18:23] LABS: MCH 27.9 pg (25.7-33.7); MCHC 31.9 g/dl (32.0-36.0); MEAN CELL VOLUME 87.6 fl (80-96); MEAN PLT VOLUME 6.9 fl (7.5-11.1); PLATELET COUNT 306 K/MM3 (134-434); RDW 18.1 % (11.6-15.6); WHITE BLOOD COUNT 8.4 K/mm3 (4.0-10.0)
[2017-04-05] MEDS ORDERED: CHLORHEXIDINE GLUCONATE 4% CLEANSER FOR DECOLONIZATION TP SCH (22:00)
[2017-04-05] MEDS ORDERED: ATORVASTATIN CA 40 MG TABLET (FP) PO SCH (22:00)
[2017-04-06] MEDS: PANTOPRAZOLE SODIUM 80 MG in SODIUM CHLORIDE 100 ML IVPB SCH ×3 (02:00→21:37)
[2017-04-06 06:26] LABS: MCH 29.1 pg (25.7-33.7); MCHC 33.2 g/dl (32.0-36.0); MEAN CELL VOLUME 87.5 fl (80-96); MEAN PLT VOLUME 7.1 fl (7.5-11.1); PLATELET COUNT 288 K/MM3 (134-434); RDW 18.4 % (11.6-15.6); WHITE BLOOD COUNT 8.9 K/mm3 (4.0-10.0)
[2017-04-06 06:40] LABS: INR 1.85 (0.82-1.09); PROTHROMBIN TIME (PATIENT) 20.6 SEC (9.98-11.88)
[2017-04-06 06:43] LABS: ACTIVATED PTT 36.3 SECONDS (26.9-34.4)
[2017-04-06] MEDS ORDERED: LEVOTHYROXINE NA 50 MCG TABLET (FP) PO SCH (07:00)
[2017-04-06 07:07] LABS: ALBUMIN 2.5 g/dl (3.4-5.0); ALK PHOS 63 U/L (45-117); ANION GAP 8 (8-16); BILIRUBIN,TOTAL 0.7 mg/dL (0.2-1.0); CALCIUM 7.9 mg/dL (8.5-10.1); CO2 27 mmol/L (21-32); COCKROFT - GAULT 87.5415; CREATININE 0.5 mg/dL (0.55-1.02); GLUCOSE,RANDOM 72 mg/dL (74-106); MAGNESIUM 2.2 mg/dL (1.8-2.4); PHOSPHOROUS 2.6 mg/dL (2.5-4.9); SGOT/AST 10 U/L (15-37); SGPT/ALT 20 U/L (12-78); TOT PROT 4.5 g/dl (6.4-8.2); TROPONIN I 0.03 ng/ml (0.00-0.05)
--- NOTE | 2017-04-06 08:43 | PN ---
Progress Note (short form) - Note Progress Note: SUBJECTIVE: Patient seen and examined in the ICU. Chart reviewed. Comfortable but anxious. No further bleeding today so far. Anticoagulation on hold. GI consultation noted and appreciated as well as Cardiology evaluation. Status post 2 units of packed RBCs. Patient denies chest pain or shortness of breath. Denies abdominal pain. OBJECTIVE: Vital Signs 04/06/17 04/06/17 04/06/17 04:00 06:00 08:00 Temperature 98.2 F Pulse Rate 75 70 70 Respiratory 19 22 20 Rate Blood Pressure 109/39 95/39 129/56 O2 Sat by Pulse Oximetry (%) 04/06/17 09:00 Temperature Pulse Rate Respiratory Rate Blood Pressure O2 Sat by Pulse 99 Oximetry (%) Intake & Output 04/05/17 04/06/17 04/06/17 23:59 07:59 15:59 Intake Total 180 Output Total 450 Balance -450 180 Weight 71.305 kg Intake: IV 120 protonix gtt 120 Oral 60 Output: Urine 450 Void 450 Other: Voiding Method Bedpan Bedpan # Unmeasured Voids Void 3 Bowel Movement No Weight Measurement Method Built in Bedscale Active Medications Acetaminophen (Tylenol -) 650 mg PO Q6H PRN PRN Reason: FEVER OR PAIN Last Admin: 04/06/17 09:23 Dose: 650 mg Amiodarone HCl (Cordarone -) 200 mg PO DAILY [facility] Last Admin: 04/06/17 09:23 Dose: 200 mg Atorvastatin Calcium (Lipitor -) 40 mg PO [facility] Last Admin: 04/05/17 21:46 Dose: 40 mg Chlorhexidine Gluconate (Hibiclens For Decolonization -) 1 applic TP [facility] Last Admin: 04/05/17 21:46 Dose: 1 applic Pantoprazole Sodium 80 mg/ (Sodium Chloride) 100 mls @ 10 mls/hr IVPB Q10H [facility] PRN Reason: 8 MG/HR Last Admin: 04/06/17 02:00 Dose: 10 mls/hr Ceftriaxone Sodium (Rocephin 1gm Ivpb (Pre-Docked)) 50 mls @ 100 mls/hr IVPB DAILY [facility] Last Admin: 04/06/17 09:24 Dose: 100 mls/hr Levothyroxine Sodium (Synthroid -) 50 mcg PO AM [facility] Last Admin: 04/06/17 06:03 Dose: 50 mcg Mupirocin (Bactroban Ointment (For Decolonization) -) 1 applic NS BID [facility] Stop: 04/10/17 09:59 Last Admin: 04/06/17 09:24 Dose: 1 applic CBC, BMP 04/06/17 05:10 04/06/17 05:10 Laboratory Results - last 24 hr 04/05/17 04/05/17 04/05/17 06:00 11:34 17:45 WBC 10.3 H 8.4 RBC 2.67 L D 2.61 L Hgb 7.6 L D 7.3 L Hct 23.3 L D 22.9 L MCV 87.3 87.6 MCHC 32.6 31.9 L RDW 17.6 H D 18.1 H Plt Count 286 306 MPV 6.9 L D 6.9 L INR PTT (Actin FS) Sodium Potassium Chloride Carbon Dioxide Anion Gap BUN Creatinine Creat Clearance w eGFR Random Glucose Calcium Phosphorus Magnesium Total Bilirubin AST ALT Alkaline Phosphatase Creatine Kinase Troponin I Total Protein Albumin Ur Specific [place] 1.020 04/06/17 04/06/17 04/06/17 05:10 05:10 05:10 WBC 8.9 RBC 2.68 L Hgb 7.8 L Hct 23.4 L MCV 87.5 MCHC 33.2 RDW 18.4 H Plt Count 288 MPV 7.1 L INR 1.85 H D PTT (Actin FS) 36.3 H Sodium 145 Potassium 4.0 Chloride 110 H Carbon Dioxide 27 Anion Gap 8 BUN 16 D Creatinine 0.5 L D Creat Clearance w eGFR > 60 Random Glucose 72 L D Calcium 7.9 L Phosphorus 2.6 Magnesium 2.2 Total Bilirubin 0.7 D AST 10 L ALT 20 Alkaline Phosphatase 63 Creatine Kinase 29 Troponin I 0.03 Total Protein 4.5 L Albumin 2.5 L Ur Specific [place] [facility] 04/05/17 06:00 Urine Culture - Final Urine - Urine Clean Catch Contaminated: Please Repeat PHYSICAL EXAMINATION: Constitutional: Yes: No Distress, Anxious. Cardiovascular: Yes: Regular Rate and Rhythm, Murmur present at aortic area-- pansystolic Respiratory: Yes: Diminished at bases. No: Rales, Rhonchi Gastrointestinal: Yes: Normal Bowel Sounds, Soft, Abdomen, Obese. No: Distention, Tenderness Edema: No Psychiatric: Yes: Alert, Oriented Problem List - Problems (1) Anemia Code(s): D64.9 - ANEMIA, UNSPECIFIED Qualifiers: Anemia type: unspecified type Qualified Code(s): D64.9 - Anemia, unspecified (2) GI (gastrointestinal bleed) Code(s): K92.2 - GASTROINTESTINAL HEMORRHAGE, UNSPECIFIED Qualifiers: GI bleed type/associated pathology: unspecified gastrointestinal hemorrhage type Qualified Code(s): K92.2 - Gastrointestinal hemorrhage, unspecified (3) Thrombosis of prosthetic heart valve Code(s): T82.867A - THROMBOSIS DUE TO CARDIAC PROSTH DEV/GRFT, INITIAL ENCOUNTER (4) COPD (chronic obstructive pulmonary disease) Code(s): J44.9 - CHRONIC OBSTRUCTIVE PULMONARY DISEASE, UNSPECIFIED ASSESSMENT & PLAN: - Clinically stable. - Continue present care. - Monitor H/H closely as well as electrolytes - Echocardiogram noted-- aortic stenosis, bioprosthetic valve, no thrombosis. - GI to follow. - Discussed with ICU attending also. - Consult Urology for renal mass-- consider CT with contrast. - Will follow. Documentation prepared by Paige Coon, acting as a medical laboratory assistant for Surendra Noyola MD. Problem List - Problems (1) Renal mass Code(s): N28.89 - OTHER SPECIFIED DISORDERS OF KIDNEY AND URETER
--- NOTE | 2017-04-06 08:52 | PN ---
Physical Exam: SUBJECTIVE: Patient seen and examined at bedside this AM in ICU. AAO and at mental status baseline. States she feels back to normal and would like to resume walking to bathroom instead of using bedpan. Afebrile overnight with no nhi blood from rectum. Has not had BM yet. Again informs me that she is very hesitant to start Coumadin again, and would prefer to stop taking it altogether despite my explaining the risks of stroke & without anticoagulation in the setting of paroxysmal atrial fibrillation. She also once again notes that she does not want to undergo an endoscopy or colonoscopy despite the risk of a rebleed. OBJECTIVE: Vital Signs Period Temp Pulse Resp BP Sys/Chan Pulse Ox Last 24 Hr 97.9 F-98.8 F 70-92 16-28 95-129/35-58 98-99 GENERAL: The patient is awake, alert, and fully oriented, in no acute distress. HEENT: Atraumatic, EOMI, PERRLA, Mild conjunctival pallor noted, no lymphadenopathy LUNGS: Breath sounds equal, clear to auscultation bilaterally, no wheezes, no crackles, no accessory muscle use. HEART: Regular rate and rhythm, S1, S2 with 4/6 systolic murmur at right sternal border ABDOMEN: Soft, nontender, nondistended, normoactive bowel sounds, no guarding, no rebound EXTREMITIES: 2+ pulses, warm, well-perfused, trace bilateral LE edema NEUROLOGICAL: Cranial nerves II through XII grossly intact. Normal speech, gait not observed. PSYCH: Normal mood, normal affect. SKIN: Warm, dry, normal turgor, no rashes or lesions noted. Laboratory Results - last 24 hr 04/05/17 04/05/17 04/05/17 06:00 11:34 17:45 WBC 10.3 H 8.4 RBC 2.67 L D 2.61 L Hgb 7.6 L D 7.3 L Hct 23.3 L D 22.9 L MCV 87.3 87.6 MCHC 32.6 31.9 L RDW 17.6 H D 18.1 H Plt Count 286 306 MPV 6.9 L D 6.9 L INR PTT (Actin FS) Sodium Potassium Chloride Carbon Dioxide Anion Gap BUN Creatinine Creat Clearance w eGFR Random Glucose Calcium Phosphorus Magnesium Total Bilirubin AST ALT Alkaline Phosphatase Creatine Kinase Troponin I Total Protein Albumin Urine Color Yellow Urine Appearance Clear Urine pH 5.0 D Ur Specific [place] 1.020 Urine Protein Negative Urine Glucose (UA) Negative Urine Ketones Negative Urine Blood Negative Urine Nitrite Negative Urine Bilirubin Negative Urine Urobilinogen Negative Ur Leukocyte Esterase 2+ H Urine RBC 2 Urine WBC 55 Ur Epithelial Cells Rare Hyaline Casts 4 Urine Mucus Rare 04/06/17 04/06/17 04/06/17 05:10 05:10 05:10 WBC 8.9 RBC 2.68 L Hgb 7.8 L Hct 23.4 L MCV 87.5 MCHC 33.2 RDW 18.4 H Plt Count 288 MPV 7.1 L INR 1.85 H D PTT (Actin FS) 36.3 H Sodium 145 Potassium 4.0 Chloride 110 H Carbon Dioxide 27 Anion Gap 8 BUN 16 D Creatinine 0.5 L D Creat Clearance w eGFR > 60 Random Glucose 72 L D Calcium 7.9 L Phosphorus 2.6 Magnesium 2.2 Total Bilirubin 0.7 D AST 10 L ALT 20 Alkaline Phosphatase 63 Creatine Kinase 29 Troponin I 0.03 Total Protein 4.5 L Albumin 2.5 L Urine Color Urine Appearance Urine pH Ur Specific [place] Urine Protein Urine Glucose (UA) Urine Ketones Urine Blood Urine Nitrite Urine Bilirubin Urine Urobilinogen Ur Leukocyte Esterase Urine RBC Urine WBC Ur Epithelial Cells Hyaline Casts Urine Mucus Active Medications Generic Name Dose Route Start Last Admin Trade Name Freq PRN Reason Stop Dose Admin Acetaminophen 650 mg 04/05/17 08:08 04/06/17 09:23 Tylenol - PO 650 mg Q6H PRN Administration FEVER OR PAIN Amiodarone HCl 200 mg 04/05/17 16:00 04/06/17 09:23 Cordarone - PO 200 mg DAILY [facility] Administration Atorvastatin Calcium 40 mg 04/05/17 22:00 04/05/17 21:46 Lipitor - PO 40 mg HS [facility] Administration Chlorhexidine Gluconate 1 applic 04/05/17 22:00 04/05/17 21:46 Hibiclens For Decolonization - TP 1 applic HS [facility] Administration Pantoprazole Sodium 80 mg/ 100 mls @ 10 mls/hr 04/05/17 06:00 04/06/17 11:59 Sodium Chloride IVPB 10 mls/hr Q10H [facility] Administration 8 MG/HR Ceftriaxone Sodium 50 mls @ 100 mls/hr 04/05/17 10:00 04/06/17 09:24 Rocephin 1gm Ivpb (Pre-Docked) IVPB 100 mls/hr DAILY [facility] Administration Levothyroxine Sodium 50 mcg 04/06/17 07:00 04/06/17 06:03 Synthroid - PO 50 mcg AM [facility] Administration Mupirocin 1 applic 04/05/17 10:00 04/06/17 09:24 Bactroban Ointment (For Decolonization) - NS 04/10/17 09:59 1 applic BID [facility] Administration 04/05/2017 TTE: Normal biventricular size and fxn, mod LAE, mod TR RVSP 40-50 mmHg , mild MR, AR, [place], bioAVR with mod calcification and MG 26 mmHg suggesting of PV stenosis ASSESSMENT/PLAN: Patient is a 86 year old female with PMH of CHF, Paroxysmal A-Fib with pacemaker , 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 Patient recently resumed Coumadin #Acute GI bleed, Hematochezia -Hemoglobin 7.8 this morning s/p 2 units PRBC given in total (5.7 at admission) ; has remained stable over 24 hours now -upgraded diet to full liquids -PPI drip -transfuse as needed to keep Hgb >7 -continue to trend CBC -GI consult appreciated (patient & family DO NOT want endoscopy/colonoscopy; will continue to hold AC while trending CBC as per discussion with cardiology) #Acute UTI -Ceftriaxone, day 2 -urine culture contaminated, resent another today #A-Fib/Aortic valve replacement Hx in setting of Coumadin use -Coumadin on hold due to active bleed on admission & patient refusing any interventions -Previously offered MARVA at [facility] to better define bioAVR anatomy, patient declined -f/u with Dr. Bala Reeves at [facility] upon d/c -Cardiology consult appreciated #Right renal Hyperdensity noted on CT -will need f/u CT w/ contrast to rule out mass -Urology consulted #HTN/HLD/CAD Hx -continue home meds: Lipitor 40mg HS, Amiodarone 200mg QD #Hyperthyroidism -continue home meds: Synthroid 50mcg daily Prophylaxis -SCD's -PPI drip -IVF as needed -monitor electrolytes -Full Liquid diet Visit type - Emergency Visit Emergency Visit: Yes ED Registration Date: 04/05/17 Care time: The patient presented to the Emergency Department on the above date and was hospitalized for further evaluation of their emergent condition. - New Patient This patient is new to me today: No - Critical Care Critical Care patient: Yes Total Critical Care Time (in minutes): 45 Critical Care Statement: The care of this patient involved high complexity decision making to prevent further life threatening deterioration of the patient 's condition and/or to evalute & treat vital organ system(s) failure or risk of failure.
[2017-04-06] MEDS: AMIODARONE HCL 200 MG TABLET (FP) PO SCH (09:23)
[2017-04-06] MEDS: CEFTRIAXONE 50 ML IVPB SCH (09:24)
[2017-04-06] MEDS: MUPIROCIN 2% TOPICAL OINTMENT FOR DECOLONIZATION NS SCH (09:24)
--- NOTE | 2017-04-06 11:32 | PN ---
Progress Note, Physician History of Present Illness: No BM yet without further hematochezia or melena. Hgb stable. - Current Medication List Current Medications: Active Medications Acetaminophen (Tylenol -) 650 mg PO Q6H PRN PRN Reason: FEVER OR PAIN Last Admin: 04/06/17 09:23 Dose: 650 mg Amiodarone HCl (Cordarone -) 200 mg PO DAILY [facility] Last Admin: 04/06/17 09:23 Dose: 200 mg Atorvastatin Calcium (Lipitor -) 40 mg PO HS [facility] Last Admin: 04/05/17 21:46 Dose: 40 mg Chlorhexidine Gluconate (Hibiclens For Decolonization -) 1 applic TP HS [facility] Last Admin: 04/05/17 21:46 Dose: 1 applic Pantoprazole Sodium 80 mg/ (Sodium Chloride) 100 mls @ 10 mls/hr IVPB Q10H [facility] PRN Reason: 8 MG/HR Last Admin: 04/06/17 02:00 Dose: 10 mls/hr Ceftriaxone Sodium (Rocephin 1gm Ivpb (Pre-Docked)) 50 mls @ 100 mls/hr IVPB DAILY [facility] Last Admin: 04/06/17 09:24 Dose: 100 mls/hr Levothyroxine Sodium (Synthroid -) 50 mcg PO AM [facility] Last Admin: 04/06/17 06:03 Dose: 50 mcg Mupirocin (Bactroban Ointment (For Decolonization) -) 1 applic NS BID [facility] Stop: 04/10/17 09:59 Last Admin: 04/06/17 09:24 Dose: 1 applic - Objective Vital Signs: Vital Signs Temperature 97.5 F L 04/06/17 10:00 Pulse Rate 70 04/06/17 10:00 Respiratory Rate 20 04/06/17 10:00 Blood Pressure 120/53 04/06/17 10:00 O2 Sat by Pulse Oximetry (%) 99 04/06/17 09:00 Constitutional: Yes: No Distress, Calm Neck: Yes: Supple Cardiovascular: Yes: Regular Rate and Rhythm Respiratory: Yes: Regular, Diminished, On Nasal O2 Gastrointestinal: Yes: Soft, Hypoactive Bowel Sounds Edema: No Labs: CBC, BMP 04/06/17 05:10 04/06/17 05:10 INR, PTT INR 1.85 (0.82-1.09) H D 04/06/17 05:10 - ....Imaging EKG: Report Reviewed (Tele: A-paced) Problem List - Problems (1) Anemia Code(s): D64.9 - ANEMIA, UNSPECIFIED Qualifiers: Anemia type: unspecified type Qualified Code(s): D64.9 - Anemia, unspecified (2) GI (gastrointestinal bleed) Code(s): K92.2 - GASTROINTESTINAL HEMORRHAGE, UNSPECIFIED Qualifiers: GI bleed type/associated pathology: unspecified gastrointestinal hemorrhage type Qualified Code(s): K92.2 - Gastrointestinal hemorrhage, unspecified (3) Anticoagulation adequate with anticoagulant therapy Code(s): Z79.01 - SOFTWARE DEVELOPMENT SPECIALIST (CURRENT) USE OF ANTICOAGULANTS (4) Pacemaker Code(s): Z95.0 - PRESENCE OF CARDIAC PACEMAKER (5) Paroxysmal atrial fibrillation Code(s): I48.0 - PAROXYSMAL ATRIAL FIBRILLATION (6) Hyperlipidemia Code(s): E78.5 - HYPERLIPIDEMIA, UNSPECIFIED Qualifiers: Hyperlipidemia type: pure hypercholesterolemia Qualified Code(s): E78.00 - Pure hypercholesterolemia, unspecified; E78.0 - Pure hypercholesterolemia (7) History of aortic valve replacement with bioprosthetic valve Code(s): Z95.3 - PRESENCE OF XENOGENIC HEART VALVE (8) Renal mass Code(s): N28.89 - OTHER SPECIFIED DISORDERS OF KIDNEY AND URETER (9) Diastolic dysfunction without heart failure Code(s): I51.9 - HEART DISEASE, UNSPECIFIED (10) Hypothyroidism Code(s): E03.9 - HYPOTHYROIDISM, UNSPECIFIED Qualifiers: Hypothyroidism type: unspecified Qualified Code(s): E03.9 - Hypothyroidism, unspecified Assessment/Plan 04/05/2017 TTE: Normal biventricular size and fxn, mod LAE, mod TR RVSP 40-50 mmHg , mild MR, AR, [place], bioAVR with mod calcification and 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 Resolved hematochezia, symptomatic anemia in context of supratherapeutic INR (with levaquin) and ASA 2. 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 HTN/HCVD 5. Hyperlipidemia 6. Right renal mass cyst vs solid mass 7. Hypothyroidism 8. Diastolic dysfunction with h/o failure P:1. Monitor Hgb post transfusion and transfuse further as needed 2. Coumadin and ASA remains on hold, maintain on Protonix gtt, hold Bumex, trend INR, may consider trial of Eliquis 2.5 bid after several weeks once hemostasis has been assured 3. Continue Lipitor 40 qhs, Amio 200 qd 4. GI input noted, declines colonoscopy, start diet and advance as tolerated 5. Previously offered MARVA at [facility] to better define bioAVR anatomy, patient declined and sons indicate would likely decline here as well 6. Consider CT with contrast to further elucidate right renal mass 7. Plan for f/u with Dr. Bala Reeves at [facility] upon d/c
[2017-04-06] MEDS ORDERED: ACETAMINOPHEN 325 MG TABLET (FP) PO PRN (15:07)
--- NOTE | 2017-04-06 15:28 | PN ---
GI Progress Note Subjective: No overt bleeding No abdominal pain Patient discussed with her family. Both she and her family do not want procedures performed - Objective Vital Signs: Vital Signs Temperature 97.5 F L 04/06/17 10:00 Pulse Rate 70 04/06/17 14:00 Respiratory Rate 18 04/06/17 14:00 Blood Pressure 106/66 04/06/17 14:00 O2 Sat by Pulse Oximetry (%) 99 04/06/17 13:28 Constitutional: Calm Cardiovascular: Yes: Regular Rate and Rhythm, Murmur Gastrointestinal Inspection: No: Distention ...Auscultate: Yes: Normoactive Bowel Sounds ...Palpate: No: Tenderness Neurological: Yes: Alert Labs: CBC, BMP 04/06/17 05:10 04/06/17 05:10 INR, PTT INR 1.85 (0.82-1.09) H D 04/06/17 05:10 Assessment/Plan GI bleed: Patient and family declining procedures. Conservative therapy No overt bleeding today and H/H stable Clears for 48 hours and continue PPI drip for 48 hours as we are trying to treat conservatively without knowing upper/lower GI location
--- NOTE | 2017-04-06 15:38 | PN ---
Teaching Attending Note Name of Resident: Hermes Henry ATTENDING PHYSICIAN STATEMENT I saw and evaluated the patient. I reviewed the resident's note and discussed the case with the resident. I agree with the resident's findings and plan as documented. SUBJECTIVE: Patient seen and examined in the ICU. Awake and alert. Denies abdominal pain. No CP or SOB. No occult bleeding overnight. Intake & Output 04/03/17 04/04/17 04/05/17 04/06/17 23:59 23:59 23:59 23:59 Intake Total 400 580 Output Total 850 300 Balance -450 280 Weight 160 lb 157 lb 1.6 oz 157 lb 3.2 oz Last Vital Signs Temp Pulse Resp BP Pulse Ox 97.5 F L 70 18 106/66 99 04/06/17 10:00 04/06/17 14:00 04/06/17 14:00 04/06/17 14:00 04/06/17 13:28 Active Medications Acetaminophen (Tylenol -) 650 mg PO Q6H PRN PRN Reason: FEVER OR PAIN Amiodarone HCl (Cordarone -) 200 mg PO DAILY [facility] Atorvastatin Calcium (Lipitor -) 40 mg PO HS [facility] Ceftriaxone Sodium (Rocephin 1gm Ivpb (Pre-Docked)) 50 mls @ 100 mls/hr IVPB DAILY [facility] Pantoprazole Sodium 80 mg/ (Sodium Chloride) 100 mls @ 10 mls/hr IVPB Q10H [facility] PRN Reason: 8 MG/HR Levothyroxine Sodium (Synthroid -) 50 mcg PO AM [facility] GENERAL: Awake, alert, oriented, in no acute distress. HEENT: (+) Mild conjunctival pallor noted, no lymphadenopathy LUNGS: Breath sounds equal, clear to auscultation bilaterally, no wheezes, no crackles, no accessory muscle use. HEART: Regular rate and rhythm, S1, S2 with 4/6 systolic murmur at right sternal border ABDOMEN: Soft, nontender, nondistended, (+) BS, mild dicomfort to deep palpation EXTREMITIES: 2+ pulses, warm, well-perfused, trace bilateral LE edema NEUROLOGICAL: Non-focal PSYCH: Normal mood, normal affect. SKIN: Warm, dry, normal turgor, no rashes or lesions noted. Laboratory Results - last 24 hr 04/05/17 04/06/17 04/06/17 17:45 05:10 05:10 WBC 8.4 8.9 RBC 2.61 L 2.68 L Hgb 7.3 L 7.8 L Hct 22.9 L 23.4 L MCV 87.6 87.5 MCHC 31.9 L 33.2 RDW 18.1 H 18.4 H Plt Count 306 288 MPV 6.9 L 7.1 L INR 1.85 H D PTT (Actin FS) 36.3 H Sodium Potassium Chloride Carbon Dioxide Anion Gap BUN Creatinine Creat Clearance w eGFR Random Glucose Calcium Phosphorus Magnesium Total Bilirubin AST ALT Alkaline Phosphatase Creatine Kinase Troponin I Total Protein Albumin 04/06/17 05:10 WBC RBC Hgb Hct MCV MCHC RDW Plt Count MPV INR PTT (Actin FS) Sodium 145 Potassium 4.0 Chloride 110 H Carbon Dioxide 27 Anion Gap 8 BUN 16 D Creatinine 0.5 L D Creat Clearance w eGFR > 60 Random Glucose 72 L D Calcium 7.9 L Phosphorus 2.6 Magnesium 2.2 Total Bilirubin 0.7 D AST 10 L ALT 20 Alkaline Phosphatase 63 Creatine Kinase 29 Troponin I 0.03 Total Protein 4.5 L Albumin 2.5 L ASSESSMENT/PLAN: Symptomatic Anemia due to GI bleeding CHF Paroxysmal A-Fib with pacemaker BioAVR on Coumadin HTN HLD Anemia Diverticulosis UTI Normal transfusion thresholds AC being held ABX GI evaluation noted : patient & family are deferring endoscopy/colonoscopy ( risks and benefits were discussed) GI prophylaxis PO when ok with GI Cardiac Telemetry monitoring Dr Welch Critical care time spent in reviewing chart, evaluating patient and formulating plan 35 min
[2017-04-06 18:09] LABS: MCH 27.8 pg (25.7-33.7); MCHC 31.4 g/dl (32.0-36.0); MEAN CELL VOLUME 88.7 fl (80-96); MEAN PLT VOLUME 7.5 fl (7.5-11.1); PLATELET COUNT 336 K/MM3 (134-434); RDW 20.1 % (11.6-15.6); WHITE BLOOD COUNT 12.2 K/mm3 (4.0-10.0)
[2017-04-06] MEDS: ATORVASTATIN CA 40 MG TABLET (FP) PO SCH (21:37)
[2017-04-06] MEDS ORDERED: PANTOPRAZOLE SODIUM 80 MG in SODIUM CHLORIDE 100 ML IVPB SCH (22:00)
[2017-04-06] MEDS ORDERED: ATORVASTATIN CA 40 MG TABLET (FP) PO SCH (22:00)
[2017-04-07] MEDS: ACETAMINOPHEN 325 MG TABLET (FP) PO PRN ×2 (05:24→17:37)
[2017-04-07] MEDS: LEVOTHYROXINE NA 50 MCG TABLET (FP) PO SCH (06:19)
[2017-04-07] MEDS ORDERED: LEVOTHYROXINE NA 50 MCG TABLET (FP) PO SCH (07:00)
[2017-04-07 07:07] LABS: BASOPHIL 0.4 % (0-2.0); EOSINOPHIL 3.4 % (0-4.5); MCH 28.7 pg (25.7-33.7); MCHC 32.2 g/dl (32.0-36.0); MEAN CELL VOLUME 89.3 fl (80-96); NEUTROPHILS 76.2 % (42.8-82.8); PLATELET COUNT 259 K/MM3 (134-434); RDW 20.2 % (11.6-15.6)
[2017-04-07 07:39] LABS: ALBUMIN 2.6 g/dl (3.4-5.0); ALK PHOS 66 U/L (45-117); ANION GAP 5 (8-16); BILIRUBIN,TOTAL 0.5 mg/dL (0.2-1.0); CALCIUM 7.8 mg/dL (8.5-10.1); CO2 28 mmol/L (21-32); CREATININE 0.6 mg/dL (0.55-1.02); GLUCOSE,RANDOM 80 mg/dL (74-106); SGOT/AST 10 U/L (15-37); SGPT/ALT 19 U/L (12-78); TOT PROT 4.7 g/dl (6.4-8.2)
[2017-04-07] MEDS: PANTOPRAZOLE SODIUM 80 MG in SODIUM CHLORIDE 100 ML IVPB SCH ×3 (08:11→19:01)
[2017-04-07] MEDS ORDERED: PT OWN MED DRAWER 7, Y5N ONE (08:30)
[2017-04-07] MEDS ORDERED: AMIODARONE HCL 200 MG TABLET (FP) PO SCH (10:00)
[2017-04-07] MEDS ORDERED: CEFTRIAXONE 50 ML IVPB SCH (10:00)
[2017-04-07] MEDS: AMIODARONE HCL 200 MG TABLET (FP) PO SCH (10:03)
[2017-04-07] MEDS: CEFTRIAXONE 50 ML IVPB SCH (10:03)
--- NOTE | 2017-04-07 10:49 | PN ---
Progress Note, Physician Chief Complaint: sitting up in chair son at bedside c/o pain in left hand-- base of thumb no bm yet hungry iv line or iv draw in left hand ? - Current Medication List Current Medications: Active Medications Acetaminophen (Tylenol -) 650 mg PO Q6H PRN PRN Reason: FEVER OR PAIN Last Admin: 04/07/17 05:24 Dose: 650 mg Amiodarone HCl (Cordarone -) 200 mg PO DAILY [facility] Last Admin: 04/07/17 10:03 Dose: 200 mg Atorvastatin Calcium (Lipitor -) 40 mg PO HS [facility] Last Admin: 04/06/17 21:37 Dose: 40 mg Ceftriaxone Sodium (Rocephin 1gm Ivpb (Pre-Docked)) 50 mls @ 100 mls/hr IVPB DAILY [facility] Last Admin: 04/07/17 10:03 Dose: 100 mls/hr Pantoprazole Sodium 80 mg/ (Sodium Chloride) 100 mls @ 10 mls/hr IVPB Q10H [facility] PRN Reason: 8 MG/HR Last Admin: 04/07/17 08:11 Dose: 10 mls/hr Levothyroxine Sodium (Synthroid -) 50 mcg PO AM [facility] Last Admin: 04/07/17 06:19 Dose: 50 mcg - Objective Vital Signs: Vital Signs Temperature 98.6 F 04/07/17 06:00 Pulse Rate 68 04/07/17 06:00 Respiratory Rate 20 04/07/17 06:00 Blood Pressure 124/56 04/07/17 06:00 O2 Sat by Pulse Oximetry (%) 96 04/07/17 06:00 Constitutional: Yes: No Distress, Calm Cardiovascular: Yes: Regular Rate and Rhythm, Murmur Respiratory: Yes: Diminished Gastrointestinal: Yes: Normal Bowel Sounds, Soft, Abdomen, Obese. No: Tenderness Musculoskeletal: Yes: Other (tender left base thumb, slight swollen , puncture wound noted on left thumb) Edema: Yes Edema: LLE: Trace, RLE: Trace Psychiatric: Yes: Alert, Oriented Labs: CBC, BMP 04/07/17 05:35 04/07/17 05:35 INR, PTT INR 1.85 (0.82-1.09) H D 04/06/17 05:10 Problem List - Problems (1) Anemia Code(s): D64.9 - ANEMIA, UNSPECIFIED Qualifiers: Anemia type: unspecified type Qualified Code(s): D64.9 - Anemia, unspecified (2) GI (gastrointestinal bleed) Code(s): K92.2 - GASTROINTESTINAL HEMORRHAGE, UNSPECIFIED Qualifiers: GI bleed type/associated pathology: unspecified gastrointestinal hemorrhage type Qualified Code(s): K92.2 - Gastrointestinal hemorrhage, unspecified (3) Thrombosis of prosthetic heart valve Code(s): T82.867A - THROMBOSIS DUE TO CARDIAC PROSTH DEV/GRFT, INITIAL ENCOUNTER (4) COPD (chronic obstructive pulmonary disease) Code(s): J44.9 - CHRONIC OBSTRUCTIVE PULMONARY DISEASE, UNSPECIFIED Assessment/Plan PLAN s/p 2 units PRBC advance full liquid refusing GI interventions at this time Tylenol PRN for pain Xray of hand Warm compresses Check Uric acid and ESR to r/o GOUT Ceftriaxone for UTI-- cultures pending No AC for now Will check CBC, if needed , may need more PRBC not in acute CHF decompensation may need to do contrast enhanced CT abd- for renal mass SCD for DVT prophylaxis Pt is on Protonix iv for GI bleed No current active bleeding now
--- NOTE | 2017-04-07 12:24 | PN ---
Progress Note, Physician Chief Complaint: Events noted Not in distress History of Present Illness: Patient was seen and examined. Awake and alert. Sitting. Chart was reviewed Denies chest pain, SOB or palpitations. No further GI bleed - Current Medication List Current Medications: Active Medications Acetaminophen (Tylenol -) 650 mg PO Q6H PRN PRN Reason: FEVER OR PAIN Last Admin: 04/07/17 05:24 Dose: 650 mg Amiodarone HCl (Cordarone -) 200 mg PO DAILY [facility] Last Admin: 04/07/17 10:03 Dose: 200 mg Atorvastatin Calcium (Lipitor -) 40 mg PO HS [facility] Last Admin: 04/06/17 21:37 Dose: 40 mg Ceftriaxone Sodium (Rocephin 1gm Ivpb (Pre-Docked)) 50 mls @ 100 mls/hr IVPB DAILY [facility] Last Admin: 04/07/17 10:03 Dose: 100 mls/hr Pantoprazole Sodium 80 mg/ (Sodium Chloride) 100 mls @ 10 mls/hr IVPB Q10H [facility] PRN Reason: 8 MG/HR Last Admin: 04/07/17 08:11 Dose: 10 mls/hr Levothyroxine Sodium (Synthroid -) 50 mcg PO AM [facility] Last Admin: 04/07/17 06:19 Dose: 50 mcg - Objective Vital Signs: Vital Signs Temperature 98.6 F 04/07/17 06:00 Pulse Rate 68 04/07/17 06:00 Respiratory Rate 20 04/07/17 06:00 Blood Pressure 124/56 04/07/17 06:00 O2 Sat by Pulse Oximetry (%) 96 04/07/17 06:00 Neck: Yes: Supple Cardiovascular: Yes: Regular Rate and Rhythm, S1, S2. No: Murmur Respiratory: Yes: Diminished Gastrointestinal: Yes: Normal Bowel Sounds, Soft. No: Tenderness Edema: No Additional Findings/Remarks: - Review of Systems Cardiovascular: Denies: Chest Pain. denies: Palpitations, Shortness of Breath Respiratory: denies: Cough, Hemoptysis, Orthopnea, PND, SOB, SOB on Exertion Gastrointestinal: denies: Abdominal Pain, Constipation, Diarrhea, (+) Melena, (- )Nausea, (+) Rectal Bleeding, (-)Vomiting Neurological: denies: Dizziness, Headache, Seizure, Syncope Labs: CBC, BMP 04/07/17 05:35 04/07/17 05:35 INR, PTT INR 1.85 (0.82-1.09) H D 04/06/17 05:10 Problem List - Problems (1) Anemia Code(s): D64.9 - ANEMIA, UNSPECIFIED Qualifiers: Anemia type: unspecified type Qualified Code(s): D64.9 - Anemia, unspecified (2) COPD (chronic obstructive pulmonary disease) Code(s): J44.9 - CHRONIC OBSTRUCTIVE PULMONARY DISEASE, UNSPECIFIED Qualifiers : COPD type: unspecified COPD Qualified Code(s): J44.9 - Chronic obstructive pulmonary disease, unspecified (3) Diastolic dysfunction without heart failure Code(s): I51.9 - HEART DISEASE, UNSPECIFIED (4) GI (gastrointestinal bleed) Code(s): K92.2 - GASTROINTESTINAL HEMORRHAGE, UNSPECIFIED Qualifiers: GI bleed type/associated pathology: unspecified gastrointestinal hemorrhage type Qualified Code(s): K92.2 - Gastrointestinal hemorrhage, unspecified (5) History of aortic valve replacement with bioprosthetic valve Code(s): Z95.3 - PRESENCE OF XENOGENIC HEART VALVE (6) Hyperlipidemia Code(s): E78.5 - HYPERLIPIDEMIA, UNSPECIFIED Qualifiers: Hyperlipidemia type: pure hypercholesterolemia Qualified Code(s): E78.00 - Pure hypercholesterolemia, unspecified; E78.0 - Pure hypercholesterolemia (7) Hypothyroidism Code(s): E03.9 - HYPOTHYROIDISM, UNSPECIFIED Qualifiers: Hypothyroidism type: unspecified Qualified Code(s): E03.9 - Hypothyroidism, unspecified (8) Pacemaker Code(s): Z95.0 - PRESENCE OF CARDIAC PACEMAKER (9) Paroxysmal atrial fibrillation Code(s): I48.0 - PAROXYSMAL ATRIAL FIBRILLATION (10) Renal mass Code(s): N28.89 - OTHER SPECIFIED DISORDERS OF KIDNEY AND URETER (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 Resolved hematochezia, symptomatic anemia in context of supratherapeutic INR (with levaquin) and ASA 2. 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 PAF now in sinus - SSS s/p PPM 4. HTN/HCVD 5. Hyperlipidemia 6. Right renal mass cyst vs. solid mass 7. Hypothyroidism 8. Diastolic dysfunction with h/o failure PLAN: 1. Monitor Hgb/Hct post transfusion and transfuse PRBC as needed 2. Coumadin and ASA remains on hold. Maintain on Protonix drip. May consider trial of Eliquis 2.5 mg bid after several weeks once hemostasis has been assured 3. Continue Lipitor. Continue Amiodarone 4. GI input noted - declined colonoscopy 5. Previously offered MARVA at [facility] to better define bioprosthetic AVR anatomy, but patient declined and family likely also declined as well 6. Consider CT with contrast to further elucidate right renal mass 7. Plan for follow up with Dr. Bala Espinoza at [facility] upon discharge Further plans are to follow Weston Anderson MD
[2017-04-07] MEDS: ATORVASTATIN CA 40 MG TABLET (FP) PO SCH (21:30)
[2017-04-08] MEDS: ACETAMINOPHEN 325 MG TABLET (FP) PO PRN ×2 (02:11→12:28)
[2017-04-08] MEDS: PANTOPRAZOLE SODIUM 80 MG in SODIUM CHLORIDE 100 ML IVPB SCH ×2 (04:48→21:36)
[2017-04-08] MEDS: LEVOTHYROXINE NA 50 MCG TABLET (FP) PO SCH (06:45)
[2017-04-08 08:39] LABS: MCH 29.4 pg (25.7-33.7); MCHC 32.6 g/dl (32.0-36.0); MEAN CELL VOLUME 90.1 fl (80-96); MEAN PLT VOLUME 7.4 fl (7.5-11.1); PLATELET COUNT 291 K/MM3 (134-434); RDW 20.5 % (11.6-15.6); WHITE BLOOD COUNT 7.8 K/mm3 (4.0-10.0)
--- NOTE | 2017-04-08 09:01 | PN ---
Progress Note, Physician Chief Complaint: sitting up in chair c/o pain in left hand-- base of thumb no bm yet, passing flatus hungry - Current Medication List Current Medications: Active Medications Acetaminophen (Tylenol -) 650 mg PO Q6H PRN PRN Reason: FEVER OR PAIN Last Admin: 04/08/17 02:11 Dose: 650 mg Amiodarone HCl (Cordarone -) 200 mg PO DAILY [facility] Last Admin: 04/07/17 10:03 Dose: 200 mg Atorvastatin Calcium (Lipitor -) 40 mg PO HS [facility] Last Admin: 04/07/17 21:30 Dose: 40 mg Ceftriaxone Sodium (Rocephin 1gm Ivpb (Pre-Docked)) 50 mls @ 100 mls/hr IVPB DAILY [facility] Last Admin: 04/07/17 10:03 Dose: 100 mls/hr Pantoprazole Sodium 80 mg/ (Sodium Chloride) 100 mls @ 10 mls/hr IVPB Q10H [facility] PRN Reason: 8 MG/HR Last Admin: 04/08/17 04:48 Dose: 10 mls/hr Levothyroxine Sodium (Synthroid -) 50 mcg PO AM [facility] Last Admin: 04/08/17 06:45 Dose: 50 mcg - Objective Vital Signs: Vital Signs Temperature 98 F 04/08/17 06:32 Pulse Rate 70 04/08/17 06:32 Respiratory Rate 18 04/08/17 06:32 Blood Pressure 110/50 04/08/17 06:32 O2 Sat by Pulse Oximetry (%) 93 L 04/07/17 21:00 Constitutional: Yes: No Distress, Calm Cardiovascular: Yes: Regular Rate and Rhythm, Murmur Respiratory: Yes: Diminished. No: Rales, Rhonchi Gastrointestinal: Yes: Normal Bowel Sounds, Soft. No: Distention, Tenderness Edema: No Labs: CBC, BMP 04/08/17 06:30 04/07/17 05:35 INR, PTT INR 1.85 (0.82-1.09) H D 04/06/17 05:10 Problem List - Problems (1) Anemia Code(s): D64.9 - ANEMIA, UNSPECIFIED Qualifiers: Anemia type: unspecified type Qualified Code(s): D64.9 - Anemia, unspecified (2) GI (gastrointestinal bleed) Code(s): K92.2 - GASTROINTESTINAL HEMORRHAGE, UNSPECIFIED Qualifiers: GI bleed type/associated pathology: unspecified gastrointestinal hemorrhage type Qualified Code(s): K92.2 - Gastrointestinal hemorrhage, unspecified (3) Thrombosis of prosthetic heart valve Code(s): T82.867A - THROMBOSIS DUE TO CARDIAC PROSTH DEV/GRFT, INITIAL ENCOUNTER (4) COPD (chronic obstructive pulmonary disease) Code(s): J44.9 - CHRONIC OBSTRUCTIVE PULMONARY DISEASE, UNSPECIFIED Qualifiers : COPD type: unspecified COPD Qualified Code(s): J44.9 - Chronic obstructive pulmonary disease, unspecified Assessment/Plan PLAN s/p 2 units PRBC, will transfuse one more unit today advance soft diet refusing GI interventions at this time Tylenol PRN for pain Xray of hand shows extensive DJD Warm compresses unlikely gout Ceftriaxone for UTI-- cultures pending No AC for now not in acute CHF decompensation SCD for DVT prophylaxis Pt is on Protonix iv for GI bleed No current active bleeding now pt aware of renal mass- she sees a doctor in [place] who checks CT abd/pelvis yearly for the tumor-- she said it has been the same size-- no surgeries for now with regards to the mass -- I will not order CT here as she follows up in [place] for that
[2017-04-08] MEDS: AMIODARONE HCL 200 MG TABLET (FP) PO SCH (10:51)
[2017-04-08] MEDS: CEFTRIAXONE 50 ML IVPB SCH (10:51)
--- NOTE | 2017-04-08 17:28 | PN ---
Progress Note, Physician Chief Complaint: Events noted Not in distress History of Present Illness: Patient was seen and examined. Awake and alert. Sitting. Chart was reviewed Denies chest pain, SOB or palpitations. No further GI bleed Transferred to floor - Current Medication List Current Medications: Active Medications Acetaminophen (Tylenol -) 650 mg PO Q6H PRN PRN Reason: FEVER OR PAIN Last Admin: 04/08/17 12:28 Dose: 650 mg Amiodarone HCl (Cordarone -) 200 mg PO DAILY [facility] Last Admin: 04/08/17 10:51 Dose: 200 mg Atorvastatin Calcium (Lipitor -) 40 mg PO HS [facility] Last Admin: 04/07/17 21:30 Dose: 40 mg Ceftriaxone Sodium (Rocephin 1gm Ivpb (Pre-Docked)) 50 mls @ 100 mls/hr IVPB DAILY [facility] Last Admin: 04/08/17 10:51 Dose: 100 mls/hr Pantoprazole Sodium 80 mg/ (Sodium Chloride) 100 mls @ 10 mls/hr IVPB Q10H [facility] PRN Reason: 8 MG/HR Last Admin: 04/08/17 04:48 Dose: 10 mls/hr Levothyroxine Sodium (Synthroid -) 50 mcg PO AM [facility] Last Admin: 04/08/17 06:45 Dose: 50 mcg - Objective Vital Signs: Vital Signs Temperature 98.7 F 04/08/17 14:20 Pulse Rate 72 04/08/17 14:20 Respiratory Rate 18 04/08/17 14:20 Blood Pressure 112/58 04/08/17 14:20 O2 Sat by Pulse Oximetry (%) 95 04/08/17 09:00 HENT: Yes: Atraumatic Neck: Yes: Supple Cardiovascular: Yes: Regular Rate and Rhythm, S1, S2 Respiratory: Yes: CTA Bilaterally Gastrointestinal: Yes: Normal Bowel Sounds, Soft. No: Tenderness Edema: No Labs: CBC, BMP 04/08/17 06:30 04/07/17 05:35 INR, PTT INR 1.85 (0.82-1.09) H D 04/06/17 05:10 Problem List - Problems (1) Anemia Code(s): D64.9 - ANEMIA, UNSPECIFIED Qualifiers: Anemia type: unspecified type Qualified Code(s): D64.9 - Anemia, unspecified (2) COPD (chronic obstructive pulmonary disease) Code(s): J44.9 - CHRONIC OBSTRUCTIVE PULMONARY DISEASE, UNSPECIFIED Qualifiers : COPD type: unspecified COPD Qualified Code(s): J44.9 - Chronic obstructive pulmonary disease, unspecified (3) Diastolic dysfunction without heart failure Code(s): I51.9 - HEART DISEASE, UNSPECIFIED (4) GI (gastrointestinal bleed) Code(s): K92.2 - GASTROINTESTINAL HEMORRHAGE, UNSPECIFIED Qualifiers: GI bleed type/associated pathology: unspecified gastrointestinal hemorrhage type Qualified Code(s): K92.2 - Gastrointestinal hemorrhage, unspecified (5) History of aortic valve replacement with bioprosthetic valve Code(s): Z95.3 - PRESENCE OF XENOGENIC HEART VALVE (6) Hyperlipidemia Code(s): E78.5 - HYPERLIPIDEMIA, UNSPECIFIED Qualifiers: Hyperlipidemia type: pure hypercholesterolemia Qualified Code(s): E78.00 - Pure hypercholesterolemia, unspecified; E78.0 - Pure hypercholesterolemia (7) Hypothyroidism Code(s): E03.9 - HYPOTHYROIDISM, UNSPECIFIED Qualifiers: Hypothyroidism type: unspecified Qualified Code(s): E03.9 - Hypothyroidism, unspecified (8) Pacemaker Code(s): Z95.0 - PRESENCE OF CARDIAC PACEMAKER (9) Paroxysmal atrial fibrillation Code(s): I48.0 - PAROXYSMAL ATRIAL FIBRILLATION (10) Renal mass Code(s): N28.89 - OTHER SPECIFIED DISORDERS OF KIDNEY AND URETER (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 Resolved hematochezia, symptomatic anemia in context of supratherapeutic INR (with levaquin) and ASA 2. 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 PAF now in sinus - SSS s/p PPM 4. HTN/HCVD 5. Hyperlipidemia 6. Right renal mass cyst vs. solid mass 7. Hypothyroidism 8. Diastolic dysfunction with h/o failure PLAN: 1. Monitor CBC 2. Coumadin and ASA remains on hold. May consider trial of Eliquis 2.5 mg bid after several weeks once hemostasis has been assured 3. Continue Lipitor. Continue Amiodarone 4. Declined colonoscopy and further GI eval. 5. Previously offered MARVA at [facility] to better define bioprosthetic AVR anatomy, but patient declined and family likely also declined as well 6. Consider CT with contrast to further elucidate right renal mass 7. Plan for follow up with Dr. Bala Espinoza at [facility] upon discharge Further plans are to follow Weston Anderson MD
[2017-04-08] MEDS: ATORVASTATIN CA 40 MG TABLET (FP) PO SCH (21:27)
[2017-04-09] MEDS: PANTOPRAZOLE SODIUM 80 MG in SODIUM CHLORIDE 100 ML IVPB SCH ×2 (03:00→09:01)
[2017-04-09] MEDS: LEVOTHYROXINE NA 50 MCG TABLET (FP) PO SCH (06:05)
[2017-04-09 08:06] LABS: MCH 28.8 pg (25.7-33.7); MEAN CELL VOLUME 87.3 fl (80-96); MEAN PLT VOLUME 7.9 fl (7.5-11.1); PLATELET COUNT 280 K/MM3 (134-434); RDW 22.5 % (11.6-15.6); WHITE BLOOD COUNT 8.8 K/mm3 (4.0-10.0)
[2017-04-09 08:33] LABS: CALCIUM 8.3 mg/dL (8.5-10.1); COCKROFT - GAULT 72.624; CREATININE 0.6 mg/dL (0.55-1.02)
--- NOTE | 2017-04-09 08:46 | PN ---
Progress Note (short form) - Note Progress Note: Subjective Patient seen and examined. Chart reviewed. Sitting in the chair. No complaints except pain in L hand at the base of the thumb-- says Tylenol helps. No further bleeding. Got transfusion yesterday. Denies abdominal pain or chest pain. Objective Last Vital Signs Temp Pulse Resp BP Pulse Ox 98.7 F 77 18 151/83 95 04/09/17 06:00 04/09/17 06:00 04/09/17 06:00 04/09/17 06:00 04/08/17 22:52 CBC, BMP 04/09/17 07:08 04/09/17 07:08 Laboratory Results - last 24 hr 04/08/17 04/09/17 04/09/17 09:35 07:08 07:08 WBC 8.8 RBC 3.35 L D Hgb 9.7 L D Hct 29.2 L D MCV 87.3 MCHC 33.0 RDW 22.5 H Plt Count 280 MPV 7.9 Sodium 144 Potassium 4.1 Chloride 108 H Carbon Dioxide 29 Anion Gap 7 L BUN 13 Creatinine 0.6 Random Glucose 81 Calcium 8.3 L Blood Type A POSITIVE Antibody Screen Negative Crossmatch See Detail Physical Exam Constitutional: Yes: No Distress, Calm Cardiovascular: Yes: Regular Rate and Rhythm, Murmur Respiratory: Yes: Diminished. No: Rales, Rhonchi Gastrointestinal: Yes: Normal Bowel Sounds, Soft. No: Distention, Tenderness Edema: No Problem List - Problems (1) Anemia Code(s): D64.9 - ANEMIA, UNSPECIFIED Qualifiers: Anemia type: unspecified type Qualified Code(s): D64.9 - Anemia, unspecified (2) GI (gastrointestinal bleed) Code(s): K92.2 - GASTROINTESTINAL HEMORRHAGE, UNSPECIFIED Qualifiers: GI bleed type/associated pathology: unspecified gastrointestinal hemorrhage type Qualified Code(s): K92.2 - Gastrointestinal hemorrhage, unspecified (3) Thrombosis of prosthetic heart valve Code(s): T82.867A - THROMBOSIS DUE TO CARDIAC PROSTH DEV/GRFT, INITIAL ENCOUNTER (4) COPD (chronic obstructive pulmonary disease) Code(s): J44.9 - CHRONIC OBSTRUCTIVE PULMONARY DISEASE, UNSPECIFIED Qualifiers : COPD type: unspecified COPD Qualified Code(s): J44.9 - Chronic obstructive pulmonary disease, unspecified Assessment and Plan Continue present care. Monitor HH. Abx. Tylenol for pain. Avoid NSAIDs. Off anticoagulation. Continue abx. Wound culture pending. Will follow. Documentation prepared by Fely Napier, acting as a associate medical director for Surendra Noyola MD.
[2017-04-09] MEDS: AMIODARONE HCL 200 MG TABLET (FP) PO SCH (10:39)
[2017-04-09] MEDS: CEFTRIAXONE 50 ML IVPB SCH (10:41)
--- NOTE | 2017-04-09 12:15 | PN ---
Progress Note, Physician History of Present Illness: Transfused yesterday, Hgb stable post transfusion, denies recurrent bleeding, tolerating diet. c/o left forearm tenderness with tender cord. - Current Medication List Current Medications: Active Medications Acetaminophen (Tylenol -) 650 mg PO Q6H PRN PRN Reason: FEVER OR PAIN Last Admin: 04/08/17 12:28 Dose: 650 mg Amiodarone HCl (Cordarone -) 200 mg PO DAILY [facility] Last Admin: 04/09/17 10:39 Dose: 200 mg Atorvastatin Calcium (Lipitor -) 40 mg PO HS [facility] Last Admin: 04/08/17 21:27 Dose: 40 mg Ceftriaxone Sodium (Rocephin 1gm Ivpb (Pre-Docked)) 50 mls @ 100 mls/hr IVPB DAILY [facility] Last Admin: 04/09/17 10:41 Dose: 100 mls/hr Levothyroxine Sodium (Synthroid -) 50 mcg PO AM [facility] Last Admin: 04/09/17 06:05 Dose: 50 mcg Pantoprazole Sodium (Protonix -) 40 mg PO DAILY [facility] - Objective Vital Signs: Vital Signs Temperature 98.7 F 04/09/17 06:00 Pulse Rate 77 04/09/17 06:00 Respiratory Rate 18 04/09/17 06:00 Blood Pressure 151/83 04/09/17 06:00 O2 Sat by Pulse Oximetry (%) 95 04/08/17 22:52 Constitutional: Yes: No Distress, Calm Neck: Yes: Supple Cardiovascular: Yes: Regular Rate and Rhythm Respiratory: Yes: Regular, Diminished Gastrointestinal: Yes: Normal Bowel Sounds, Soft Extremities: Yes: Other (Left forearm superficial thrombophlebitis) Labs: CBC, BMP 04/09/17 07:08 04/09/17 07:08 INR, PTT INR 1.85 (0.82-1.09) H D 04/06/17 05:10 Problem List - Problems (1) Anemia Code(s): D64.9 - ANEMIA, UNSPECIFIED Qualifiers: Anemia type: unspecified type Qualified Code(s): D64.9 - Anemia, unspecified (2) GI (gastrointestinal bleed) Code(s): K92.2 - GASTROINTESTINAL HEMORRHAGE, UNSPECIFIED Qualifiers: GI bleed type/associated pathology: unspecified gastrointestinal hemorrhage type Qualified Code(s): K92.2 - Gastrointestinal hemorrhage, unspecified (3) Anticoagulation adequate with anticoagulant therapy Code(s): Z79.01 - FDC (CURRENT) USE OF ANTICOAGULANTS (4) Pacemaker Code(s): Z95.0 - PRESENCE OF CARDIAC PACEMAKER (5) Paroxysmal atrial fibrillation Code(s): I48.0 - PAROXYSMAL ATRIAL FIBRILLATION (6) Hyperlipidemia Code(s): E78.5 - HYPERLIPIDEMIA, UNSPECIFIED Qualifiers: Hyperlipidemia type: pure hypercholesterolemia Qualified Code(s): E78.00 - Pure hypercholesterolemia, unspecified; E78.0 - Pure hypercholesterolemia (7) History of aortic valve replacement with bioprosthetic valve Code(s): Z95.3 - PRESENCE OF XENOGENIC HEART VALVE (8) Renal mass Code(s): N28.89 - OTHER SPECIFIED DISORDERS OF KIDNEY AND URETER (9) Diastolic dysfunction without heart failure Code(s): I51.9 - HEART DISEASE, UNSPECIFIED (10) Hypothyroidism Code(s): E03.9 - HYPOTHYROIDISM, UNSPECIFIED Qualifiers: Hypothyroidism type: unspecified Qualified Code(s): E03.9 - Hypothyroidism, unspecified (11) Superficial thrombophlebitis of left upper extremity Code(s): I80.8 - PHLEBITIS AND THROMBOPHLEBITIS OF OTHER SITES Assessment/Plan 04/05/2017 TTE: Normal biventricular size and fxn, mod LAE, mod TR RVSP 40-50 mmHg , mild MR, AR, GA, bioAVR with mod calcification and 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 Resolved hematochezia, symptomatic anemia in context of supratherapeutic INR (with levaquin) and ASA 2. 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 HTN/HCVD 5. Hyperlipidemia 6. Right renal mass cyst vs solid mass 7. Hypothyroidism 8. Diastolic dysfunction with h/o failure 9. Left superficial thrombophlebitis PLAN: 1. Monitor CBC, warm moist compresses to left forearm 2. Coumadin and ASA remains on hold. May consider trial of Eliquis 2.5 mg bid after several weeks once hemostasis has been assured 3. Continue Lipitor 40 qhs and Amiodarone 200 qd 4. Declined colonoscopy and further GI eval, advancing diet as tolerated. 5. Previously offered MARVA at [facility] to better define bioprosthetic AVR anatomy, but patient declined and family likely also declined as well 6. Consider CT with contrast to further elucidate right renal mass 7. Plan for follow up with Dr. Bala Espinoza at [facility] upon discharge
[2017-04-09] MEDS: ATORVASTATIN CA 40 MG TABLET (FP) PO SCH (22:08)
[2017-04-10] MEDS: LEVOTHYROXINE NA 50 MCG TABLET (FP) PO SCH (06:15)
[2017-04-10 06:49] LABS: BASOPHIL 0.6 % (0-2.0); EOSINOPHIL 4.1 % (0-4.5); MCH 28.8 pg (25.7-33.7); MCHC 32.9 g/dl (32.0-36.0); MEAN CELL VOLUME 87.4 fl (80-96); MEAN PLT VOLUME 7.2 fl (7.5-11.1); NEUTROPHILS 72.5 % (42.8-82.8); PLATELET COUNT 337 K/MM3 (134-434); RDW 23.2 % (11.6-15.6); WHITE BLOOD COUNT 10.1 K/mm3 (4.0-10.0)
[2017-04-10 07:22] LABS: ALBUMIN 2.7 g/dl (3.4-5.0); ANION GAP 8 (8-16); CALCIUM 8.1 mg/dL (8.5-10.1); CO2 28 mmol/L (21-32); GLUCOSE,RANDOM 79 mg/dL (74-106)
[2017-04-10 07:27] LABS: ALK PHOS 78 U/L (45-117); BILIRUBIN,TOTAL 0.5 mg/dL (0.2-1.0); COCKROFT - GAULT 73.2785; CREATININE 0.6 mg/dL (0.55-1.02); SGOT/AST 9 U/L (15-37); SGPT/ALT 17 U/L (12-78); TOT PROT 5.2 g/dl (6.4-8.2)
[2017-04-10 09:06] LABS: ANISOCYTOSIS 2+
--- NOTE | 2017-04-10 09:24 | CONSULT ---
Consult Consult Specialty:: urology Referred by:: Dr Huerta Reason for Consultation:: renal mass - History of Present Illness Chief Complaint: renal mass History of Present Illness: Patient is an 86 year old female with acute blood loss anemia and GI bleed. On CT a 2cm renal mass was noted on non contrast images. Patient is aware of this mass and she is under active surveillance with Dr. Jaimes at [facility]. She has no symptoms specific to this finding - History Source History Provided By: Patient, Medical Record Limitations to Obtaining History: No Limitations - Past Medical History [employer]UDIO [employer]NER: Yes: Other (h/o subarachnoid hemorrhage) Cardio/Vascular: Yes: AFIB, CHF, Hyperlipdemia, Other (bioprosthetic valve) Pulmonary: Yes: Other (none) Gastrointestinal: Yes: Other (none) Hepatobiliary: Yes: Cirrhosis, Cholelithiasis, Cholecystitis, Choledocholithiasis, Hepatitis A, Hepatitis B, Hepatitis C, Other Renal/: Yes: Cancer, Renal Calculi ...: No Infectious Disease: Yes: Other (UTI) Musculoskeletal: Yes: Other (back pain) Endocrine: Yes: Hypothyroidism. No: Diabetes Mellitus - Past Surgical History Past Surgical History: Yes: Permanent Pacemaker, Valve Replacement Additional Surgical History: resection of right arm tumor, B/L TKR - Alcohol/Substance Use Hx Alcohol Use: No - Smoking History Smoking history: Never smoked Have you smoked in the past 12 months: No Aproximately how many cigarettes per day: 0 - Social History Usual Living Arrangement: With Spouse ADL: Independent Occupation: Retired [place] History of Recent Travel: No Home Medications - Allergies Allergies/Adverse Reactions: Allergies Allergy/AdvReac Type Severity Reaction Status Date / Time No Known Allergies Allergy Verified 04/04/17 22:03 - Home Medications Home Medications: Ambulatory Orders Amiodarone HCl 200 mg PO DAILY 04/05/17 Aspirin [ASA -] 81 mg PO DAILY 04/05/17 Atorvastatin Ca [Lipitor] 40 mg PO HS 04/05/17 Benzonatate 200 mg PO DAILY 04/05/17 Bumetanide [Bumex -] 1 mg PO DAILY 04/05/17 Docusate Sodium [Colace -] 100 mg PO DAILY 04/05/17 Fluticasone Furoate [Arnuity Ellipta] 200 mcg IH DAILY 04/05/17 Levofloxacin 250 mg Ivpb [Levaquin 250 mg Premixed Ivpb -] 250 mg PO DAILY 04/05 Levothyroxine [Synthroid -] 50 mcg PO DAILY 04/05/17 Pantoprazole Sodium [Protonix] 40 mg PO DAILY 04/05/17 Polyethylene Glycol 3350 [Gavilax] 1 pack PO DAILY 04/05/17 Potassium Citrate [Urocit-K (Nf)] 540 mg NR BID 04/05/17 Sennosides [Senna] 2 tab PO DAILY 04/05/17 Tiotropium Arcade [Spiriva] 1 inh PO DAILY 04/05/17 Warfarin Sodium [Coumadin] 5 mg PO DAILY 04/05/17 Family Disease History - Family Disease History Family Disease History: Other: Father ( 68: ? PE), Mother ( 32 during childbirth), Brother (1 : 70 intraabdominal cancer), Sister (1 : 76) Other Family History: 5 sons, 1 daughter: healthy Review of Systems - Review of Systems Genitourinary: reports: No Symptoms Physical Exam Vital Signs: Vital Signs Temperature 97.9 F 04/10/17 06:00 Pulse Rate 84 04/10/17 06:00 Respiratory Rate 18 04/10/17 06:00 Blood Pressure 150/87 04/10/17 06:00 O2 Sat by Pulse Oximetry (%) 95 04/09/17 21:00 Gastrointestinal: Yes: Soft Renal/: No: Bladder Distention, CVA Tenderness - Left, CVA Tenderness - Right , Mason Present, Hematuria Labs: CBC, BMP 04/10/17 06:20 04/10/17 06:20 Imaging - Results Cat Scan: Report Reviewed Problem List - Problems (1) Renal mass Assessment/Plan: paitent with a small renal mass that is being followed by another urologist and the patient elects for continued surveillance. Code(s): N28.89 - OTHER SPECIFIED DISORDERS OF KIDNEY AND URETER
[2017-04-10] MEDS ORDERED: PANTOPRAZOLE 40 MG TABLET (FP) PO SCH (10:00)
[2017-04-10] MEDS: AMIODARONE HCL 200 MG TABLET (FP) PO SCH (10:28)
[2017-04-10] MEDS: CEFTRIAXONE 50 ML IVPB SCH (10:36)
--- NOTE | 2017-04-10 12:00 | DS ---
Physical Examination Vital Signs: Vital Signs Temperature 98.0 F 04/10/17 09:28 Pulse Rate 73 04/10/17 09:28 Respiratory Rate 20 04/10/17 09:28 Blood Pressure 156/84 04/10/17 09:28 O2 Sat by Pulse Oximetry (%) 92 L 04/10/17 10:00 Constitutional: Yes: No Distress, Calm Cardiovascular: Yes: Regular Rate and Rhythm, Murmur Respiratory: Yes: Diminished Gastrointestinal: Yes: Normal Bowel Sounds, Soft, Abdomen, Obese. No: Distention, Tenderness Musculoskeletal: Yes: Other (left arm-- phlebitis) Edema: No Labs: CBC, BMP 04/10/17 06:20 04/10/17 06:20 Discharge Summary Reason For Visit: GASTROINTESTINAL HEMORRHAGE/GI BLEED ANEMIA Current Active Problems Anemia (Acute) COPD (chronic obstructive pulmonary disease) (Acute) Diastolic dysfunction without heart failure (Acute) GI (gastrointestinal bleed) (Acute) History of aortic valve replacement with bioprosthetic valve (Acute) Hyperlipidemia (Acute) Hypothyroidism (Acute) Pacemaker (Acute) Paroxysmal atrial fibrillation (Acute) Renal mass (Acute) Superficial thrombophlebitis of left upper extremity (Acute) Thrombosis of prosthetic heart valve (Acute) Hospital Course: Pt admitted in ICU for GI bleeding. She was in [facility] recently for bronchitis, severe orthopnea and PND- CHF decompensation. Seen by Discharge Coordinator there- Dr Benitez-- Echo showed stenosis of prosthetic valve-- possibly thrombus - started on Heparin gtt and Coumadin. She was dc on 03/26 to [facility]. She was dc on PO Levaquin and Coumadin. Admission Hb in [place] - 7.9. In [place] she saw dark stools for the last two days and yesterday noted red blood in stool. Hb on 04/04-- 6.9 in [place]. She felt lightheaded , upper abd pain , decreased SOB, feels tired. No active bleeding here so far. 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 Time spent preparing discharge-- 30 min Condition: Fair - Instructions Referrals: Reyna Gomes [Primary Care Provider] - Disposition: HALF-WAY FACILITY - Home Medications Comprehensive Discharge Medication List: Ambulatory Orders Amiodarone HCl 200 mg PO DAILY 04/05/17 Aspirin [ASA -] 81 mg PO DAILY 04/05/17 Atorvastatin Ca [Lipitor] 40 mg PO HS 04/05/17 Benzonatate 200 mg PO DAILY 04/05/17 Bumetanide [Bumex -] 1 mg PO DAILY 04/05/17 Docusate Sodium [Colace -] 100 mg PO DAILY 04/05/17 Fluticasone Furoate [Arnuity Ellipta] 200 mcg IH DAILY 04/05/17 Levofloxacin 250 mg Ivpb [Levaquin 250 mg Premixed Ivpb -] 250 mg PO DAILY 04/05 Levothyroxine [Synthroid -] 50 mcg PO DAILY 04/05/17 Pantoprazole Sodium [Protonix] 40 mg PO DAILY 04/05/17 Polyethylene Glycol 3350 [Gavilax] 1 pack PO DAILY 04/05/17 Potassium Citrate [Urocit-K (Nf)] 540 mg NR BID 04/05/17 Sennosides [Senna] 2 tab PO DAILY 04/05/17 Tiotropium [place] [Spiriva] 1 inh PO DAILY 04/05/17 Warfarin Sodium [Coumadin] 5 mg PO DAILY 04/05/17
--- NOTE | 2017-04-10 12:03 | PN ---
Progress Note, Physician Chief Complaint: Events noted Not in distress Complains of pain in the left forearm ?phlebitis History of Present Illness: Patient was seen and examined. Awake and alert. Sitting. Chart was reviewed Denies chest pain, SOB or palpitations. No further GI bleed As outlined above - Current Medication List Current Medications: Active Medications Acetaminophen (Tylenol -) 650 mg PO Q6H PRN PRN Reason: FEVER OR PAIN Last Admin: 04/08/17 12:28 Dose: 650 mg Amiodarone HCl (Cordarone -) 200 mg PO DAILY [facility] Last Admin: 04/10/17 10:28 Dose: 200 mg Atorvastatin Calcium (Lipitor -) 40 mg PO HS [facility] Last Admin: 04/09/17 22:08 Dose: 40 mg Levothyroxine Sodium (Synthroid -) 50 mcg PO AM [facility] Last Admin: 04/10/17 06:15 Dose: 50 mcg Pantoprazole Sodium (Protonix -) 40 mg PO DAILY [facility] Last Admin: 04/10/17 10:28 Dose: 40 mg - Objective Vital Signs: Vital Signs Temperature 98.0 F 04/10/17 09:28 Pulse Rate 73 04/10/17 09:28 Respiratory Rate 20 04/10/17 09:28 Blood Pressure 156/84 04/10/17 09:28 O2 Sat by Pulse Oximetry (%) 92 L 04/10/17 10:00 HENT: Yes: Atraumatic Neck: Yes: Supple Cardiovascular: Yes: Regular Rate and Rhythm, S1, S2. No: Murmur Respiratory: Yes: CTA Bilaterally Gastrointestinal: Yes: Normal Bowel Sounds, Soft. No: Tenderness Edema: No Labs: CBC, BMP 04/10/17 06:20 04/10/17 06:20 Problem List - Problems (1) Anemia Code(s): D64.9 - ANEMIA, UNSPECIFIED Qualifiers: Anemia type: unspecified type Qualified Code(s): D64.9 - Anemia, unspecified (2) COPD (chronic obstructive pulmonary disease) Code(s): J44.9 - CHRONIC OBSTRUCTIVE PULMONARY DISEASE, UNSPECIFIED Qualifiers : COPD type: unspecified COPD Qualified Code(s): J44.9 - Chronic obstructive pulmonary disease, unspecified (3) Diastolic dysfunction without heart failure Code(s): I51.9 - HEART DISEASE, UNSPECIFIED (4) GI (gastrointestinal bleed) Code(s): K92.2 - GASTROINTESTINAL HEMORRHAGE, UNSPECIFIED Qualifiers: GI bleed type/associated pathology: unspecified gastrointestinal hemorrhage type Qualified Code(s): K92.2 - Gastrointestinal hemorrhage, unspecified (5) History of aortic valve replacement with bioprosthetic valve Code(s): Z95.3 - PRESENCE OF XENOGENIC HEART VALVE (6) Hyperlipidemia Code(s): E78.5 - HYPERLIPIDEMIA, UNSPECIFIED Qualifiers: Hyperlipidemia type: pure hypercholesterolemia Qualified Code(s): E78.00 - Pure hypercholesterolemia, unspecified; E78.0 - Pure hypercholesterolemia (7) Hypothyroidism Code(s): E03.9 - HYPOTHYROIDISM, UNSPECIFIED Qualifiers: Hypothyroidism type: unspecified Qualified Code(s): E03.9 - Hypothyroidism, unspecified (8) Pacemaker Code(s): Z95.0 - PRESENCE OF CARDIAC PACEMAKER (9) Paroxysmal atrial fibrillation Code(s): I48.0 - PAROXYSMAL ATRIAL FIBRILLATION (10) Renal mass Code(s): N28.89 - OTHER SPECIFIED DISORDERS OF KIDNEY AND URETER (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 Resolved hematochezia, symptomatic anemia in context of supratherapeutic INR (with levaquin) and ASA 2. 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 PAF now in sinus - SSS s/p PPM 4. HTN/HCVD 5. Hyperlipidemia 6. Right renal mass cyst vs. solid mass 7. Hypothyroidism 8. Diastolic dysfunction with h/o failure PLAN: 1. Monitor CBC 2. Coumadin and ASA remains on hold. May consider trial of Eliquis 2.5 mg bid after several weeks once hemostasis has been assured 3. Continue Lipitor. Continue Amiodarone 4. Declined colonoscopy and further GI eval. 5. Previously offered MARVA at [facility] to better define bioprosthetic AVR anatomy, but patient declined and family likely also declined as well 6. Consider CT with contrast to further elucidate right renal mass 7. Plan for follow up with Dr. Bala Espinoza at [facility] upon discharge. May apply warm compresses on the forearm Discharge planning Weston Anderson MD
[2017-04-10 16:13] VITALS: BP 133/78; PULSE 79; TEMP 98.5
== END 2017-04-10 17:19 | DRG 813 ==
LOC: JER 21:20 → JERBED 04-05 03:04 → UNDOADMIN 04-05 03:10 → JERBED 04-05 03:10 → JICU 04-05 05:15 → J4W 04-06 18:03 → J5S 04-07 18:56
PROVIDERS: ADMIT Internal Medicine; ATTEND Internal Medicine
PROC: 30233N1 Transfusion of Nonautologous Red Blood Cells into Peripheral Vein, Percutaneous Approach (ICD-10-PCS; principal; 2017-04-05)
DX: D68.32 Hemorrhagic disorder due to extrinsic circulating anticoagulants (principal); K92.2 Gastrointestinal hemorrhage, unspecified; N39.0 Urinary tract infection, site not specified; D62 Acute posthemorrhagic anemia; I50.30 Unspecified diastolic (congestive) heart failure; I48.0 Paroxysmal atrial fibrillation; J44.9 Chronic obstructive pulmonary disease, unspecified; E03.9 Hypothyroidism, unspecified; K74.60 Unspecified cirrhosis of liver; N20.0 Calculus of kidney; I80.8 Phlebitis and thrombophlebitis of other sites; I25.10 Atherosclerotic heart disease of native coronary artery without angina pectoris; K57.90 Diverticulosis of intestine, part unspecified, without perforation or abscess without bleeding; D49.519 Neoplasm of unspecified behavior of unspecified kidney; K80.80 Other cholelithiasis without obstruction; T37.8X5A Adverse effect of other specified systemic anti-infectives and antiparasitics, initial encounter; N28.89 Other specified disorders of kidney and ureter; M54.9 Dorsalgia, unspecified; I11.0 Hypertensive heart disease with heart failure; Z86.19 Personal history of other infectious and parasitic diseases; Z95.2 Presence of prosthetic heart valve; Z95.0 Presence of cardiac pacemaker; Z79.01 Long term (current) use of anticoagulants
CPT/HCPCS: 36415; 36430; 71010-TC; 73130-TC-LT; 74176-TC; 80048; 80053; 81003; 81015; 82550; 83735; 84100; 84484; 84550; 85025; 85027; 85610; 85651; 85730; 86850; 86900; 86901; 86922; 87086; 93005; 93010; 93306-TC; 99284-25; P9038; P9058